=== PATIENT | female | born 1955 | race Caucasian/White ===

== ENCOUNTER 2024-01-17 11:11 | Outpatient (AMB) | payer MEDICARE, OTHER, SELFPAY ==
--- NOTE | 2024-01-17 11:18 | MHC.PC.OV ---
Vital Signs 01/17/24 11:26 Weight 181 lb 6 oz BP 112/76 Blood Pressure Location Lt brachial Position Sitting Respiration 14 Pulse 58 Pulse Source Pulse Oximeter Temp 98.1 F Temp Source Oral Pulse Oximetry (%) 95 Oxygen Delivery Method Room Air Intake Visit Reasons: est care Intake Note: New patient visit. Seeing Dr Matthew for bursitis Market Consultant Required: No Allergies No Known Allergies Allergy (Verified 01/17/24 11:20) Medication List - Last Reconciled 01/17/24 by Zonia Stokes MD atorvastatin 20 mg PO DAILY zrclkpgdwj-czomqjfsexuzi-jgmf 50-300-40 mg 1 - 2 caps PO Q4H Tobacco use date assessed: 01/17/24 Fall risk assessment: No Falls in past year Last assessed Fall Risk: 01/17/24 Dental Screening Dental Screen Date: 01/17/24 Did you have a dental visit in the last 12 months?: Yes Did you have a dental problem in the last 6 months where you did not have access to dental care?: No Was dental information given to patient?: Patient has dentist HPI HPI Comments History of Present Illness Details 68 year female with a past medical history of hyperlipidemia, migraine presenting to establish care Migraines-Takes fioricet as needed, sparingly Hyperlipidemia-On lipitor. tolerating without side effects. She wanted to lose weight with help of GLP. Ozempic was not covered. 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 1. Little interest or pleasure in doing things: not at all 2. Feeling down, depressed, or hopeless: not at all 3. Trouble falling or staying asleep, or sleeping too much: not at all 4. Feeling tired or having little energy: not at all 5. Poor appetite or overeating: not at all 6. Feeling bad about yourself - or that you are a failure or have let yourself or your family down: not at all 7. Trouble concentrating on things, such as reading the newspaper or watching television: not at all 8. Moving or speaking so slowly that other people could have noticed. Or the opposite - being so fidgety or restless that you have been moving around a lot more than usual: not at all 9. Thoughts that you would be better off or of hurting yourself in some way: not at all Total score: 0 Depression Screening Interpretation: Negative (neg) Depression Screening Done: Yes 11150 - PHQ-9 Billing: Yes Source: Developed by Drs. Ron Mark, Sarah West, Nicholas Collier and colleagues, with an educational ghislaine from [employer] Thrive Questionnaire Date Thrive assessed: 01/17/24 I am a: Patient What is your living situation today?: I have a steady place to live Within the past 12 months, did the food you bought not last and you didn't have the money to get more?: Never true Within the past 12 months, did you worry whether your food would run out before you got money to buy more?: Never true Do you have trouble paying for medicines?: No Do you have trouble getting transportation to medical appointments?: No Do you have trouble paying your heating and electricity bill?: No Do you have trouble taking care of your child, family member or friend?: No Do you have trouble with day-to-day activities such as bathing, preparing meals, shopping, managing finances, etc.?: No Are you currently unemployed and looking for a job?: No Are you interested in more education?: No Please select the resources that you would like help with: None Currently or been in a relationship where the following occur: no concerns reported THRIVE Score: 0 AUDIT C Alcohol Use Questionnaire (AUDIT-C) 1. How often do you have a drink containing alcohol?: 2-4 times a month 2. How many drinks containing alcohol do you have on a typical day when you are drinking?: 1 or 2 3. How often do you have six or more drinks on one occasion?: Never Total Score: 2 NADINE-7 AMB Questionnaire NADINE-7 Date NADINE - 7 assessed: 01/17/24 Feeling nervous, anxious, or on edge: 0 = Not at all Not being able to stop or control worryin = Not at all Worrying too much about different things: 0 = Not at all Trouble relaxin = Not at all Being so restless that it is hard to sit still: 0 = Not at all Becoming easily annoyed or irritable: 0 = Not at all Feeling afraid as if something awful might happen: 0 = Not at all Total NADINE-7 score (0-4 normal; 5-9 mild; 10-14 moderate; 15-21 severe): 0 Source: Developed by Drs. Ron Mark, Sarah West, Nicholas Collier and colleagues, with an educational ghislaine from [employer] NADINE-7 Assessment Billing NADINE-7 Assessment Tool: NADINE-7 Assessment 45573 Review of Systems Const Details: ROS CONSTITUTIONAL: Denies weight loss, fever and chills. HEENT: Denies changes in vision and hearing. RESPIRATORY: Denies SOB and cough. CV: Denies palpitations and CP GI: Denies abdominal pain, nausea, vomiting and diarrhea. : Denies dysuria and urinary frequency. MSK: Denies new myalgia and joint pain. SKIN: Denies rash and pruritus. NEUROLOGICAL: Denies headache PSYCHIATRIC: Denies recent changes in mood. Physical exam (Primary Care) Vital Signs: Last Vital Signs Temp 98.1 F 01/17/24 11:26 Pulse 58 01/17/24 11:26 Resp 14 01/17/24 11:26 BP 112/76 01/17/24 11:26 Pulse Ox 95 01/17/24 11:26 Oxygen Delivery Method Room Air 01/17/24 11:26 PHYSICAL EXAM: GENERAL: Alert and oriented x 3. NAD EYES: EOMI. Anicteric. HENT: Moist mucous membranes. No scleral icterus. No cervical lymphadenopathy. LUNGS: Clear to auscultation bilaterally. CARDIOVASCULAR: Regular rate and rhythm. No murmur. No JVD. ABDOMEN: Soft, non-tender +bs EXTREMITIES: No edema. Non-tender. SKIN: No rashes or lesions. Warm. NEUROLOGIC: No focal neurological deficits. CN II-XII grossly intact PSYCHIATRIC: Cooperative. Appropriate mood and affect Tobacco/Smoking Status: Tobacco use Status Tobacco use date assessed 01/17/24 01/17/24 12:03 Patient Tobacco Use Status Never used Tobacco 01/17/24 12:03 e-Cigarette/Vaping Use Never Used 01/17/24 11:24 PHQ-9: PHQ-9 Score PHQ-9: Total score 0 01/17/24 12:03 Depression Screening Interpretation: Negative (neg) Thrive Assessment: Date of Thrive Assessment Date Thrive assessed 01/17/24 01/17/24 12:03 Currently or been in a relationship where the following occur: no concerns reported Assessment and Plan Assessment & Plan (1) Hyperlipidemia: Comment: Check lipids next visit. Advised to stay on medications as no increase in exercise or dietary modifications. She exercises frequently at baseline Code(s): E78.5 - Hyperlipidemia, unspecified Qualifiers: Hyperlipidemia type: mixed hyperlipidemia Qualified Code(s): E78.2 - Mixed hyperlipidemia (2) Headache: Code(s): R51.9 - Headache, unspecified Qualifiers: Headache type: other headache syndrome Qualified Code(s): G44.89 - Other headache syndrome Plan: Takes prn otc medications for infrequent headache. If this does not relieve symptoms she uses fioricet as needed sparingly. Mounjaro ordered-discussed PA may be denied as non diabetic Medications: New hnjkxrxuxy-xuowgketgtcqr-yxed 50-300-40 mg 1 cap PO Q4H PRN 30 caps 0RF pain MDD 6 cap Mounjaro (tirzepatide) 5 mg (0.5 mL) subcut QWEEK 2 mL 3RF NS atorvastatin 20 mg PO DAILY 90 tabs 3RF 90 days Coding Level of Care Code Est Pt Level 4 (84528) Complex EM visit Add On G2211 Diagnoses Mixed hyperlipidemia E78.2 Hyperlipidemia type: mixed hyperlipidemia Other headache syndrome G44.89 Headache type: other headache syndrome Additional Codes NADINE-7 Assessment Billing - NADINE-7 Assessment Tool: NADINE-7 Assessment 00840 ([id number]) Time Spent (min) 35
[2024-01-17 11:26] VITALS: BP 112/76; PULSE 58; RESP 14; TEMP 36.7; O2SAT 95
== END 2024-01-17 12:02 | disposition home or self-care (01) ==
PROVIDERS: PCP Internal Medicine; Visit Provider Internal Medicine
DX: E78.2 Mixed hyperlipidemia (principal); G44.89 Other headache syndrome
CPT/HCPCS: 99214; G2211

== ENCOUNTER 2024-07-01 08:27 | Outpatient (AMB) | payer MEDICARE, OTHER, SELFPAY ==
--- NOTE | 2024-07-01 08:29 | A.OFFPC_ITS ---
Vital Signs 07/01/24 08:34 Height 5 ft 4 in Weight 189 lb BMI 32.4 BP 104/68 Blood Pressure Location Rt brachial Position Sitting Pulse 63 Pulse Source Pulse Oximeter Pulse Oximetry (%) 95 Oxygen Delivery Method Room Air Intake Visit Reasons: cpe Intake Note: Physical. Left leg pain. Started in December. Went to Dr Matthew and he said it was bursitis. Has tried physical therapy. Allergies No Known Allergies Allergy (Verified 07/01/24 08:32) Tobacco use date assessed: 01/17/24 Dental Screening Dental Screen Date: 01/17/24 HPI HPI Comments History of Present Illness Details 69 year female with a past medical histo ry of hyperlipidemia, migraine presenting for follow up Migraines-Takes fioricet as needed, sparingly Hyperlipidemia-On lipitor 20mg daily. tolerating without side effects. She wanted to lose weight with help of GLP. Ozempic was not covered. Having persistent left hip pain. Had bruising/rash no trauma. Saw Dr Matthew had xray offered injection, declined. Left low back pain. Radiating pain wrapping around lateral upper thigh into quadricep/knee. Feels heavy/weak. 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 NAD EYES: EOMI. Anicteric. HENT: Moist mucous membranes. No scleral icterus. No cervical lymphadenopathy. LUNGS: Clear to auscultation bilaterally. CARDIOVASCULAR: Regular rate and rhythm. No murmur. No JVD. ABDOMEN: Soft, non-tender +bs EXTREMITIES: No edema. Non-tender. SKIN: No rashes or lesions. Warm. NEUROLOGIC: No focal neurological deficits. CN II-XII grossly intact PSYCHIATRIC: Cooperative. Appropriate mood and affect [facility] Family History Mother Lung cancer Maternal Grandmother Pancreatic cancer Social History Housing: House Patient Tobacco Use Status: Never used Tobacco e-Cigarette/Vaping Use: Never Used Second Hand Smoke Exposure: No service: No Current occupational status: retired Cognitive needs: No Hearing needs: No Vision needs: Yes (glasses to read) Questionnaire PHQ-9 Over the last 2 weeks, how often have you been bothered by any of the following problems? 1. Little interest or pleasure in doing things: not at all 2. Feeling down, depressed, or hopeless: not at all 3. Trouble falling or staying asleep, or sleeping too much: more than half the days 4. Feeling tired or having little energy: more than half the days 5. Poor appetite or overeating: not at all 6. Feeling bad about yourself - or that you are a failure or have let yourself or your family down: not at all 7. Trouble concentrating on things, such as reading the newspaper or watching television: not at all 8. Moving or speaking so slowly that other people could have noticed. Or the opposite - being so fidgety or restless that you have been moving around a lot more than usual: not at all 9. Thoughts that you would be better off or of hurting yourself in some way: not at all Total score: 4 Depression Screening Interpretation: Positive Depression Screening Follow-up: Existing condition Depression Screening Done: Yes 89879 - PHQ-9 Billing: Yes Source: Developed by Drs. Ron Mark, Sarah West, Nicholas Collier and colleagues, with an educational ghislaine from [employer]. Thrive Questionnaire Date Thrive assessed: 01/17/24 I am a: Patient What is your living situation today?: I have a steady place to live Within the past 12 months, did the food you bought not last and you didn't have the money to get more?: Never true Within the past 12 months, did you worry whether your food would run out before you got money to buy more?: Never true Do you have trouble paying for medicines?: No Do you have trouble getting transportation to medical appointments?: No Do you have trouble paying your heating and electricity bill?: No Do you have trouble taking care of your child, family member or friend?: No Do you have trouble with day-to-day activities such as bathing, preparing meals, shopping, managing finances, etc.?: No Are you currently unemployed and looking for a job?: No Are you interested in more education?: No Please select the resources that you would like help with: None Currently or been in a relationship where the following occur: No concerns reported THRIVE Score: 0 AUDIT C Alcohol Use Questionnaire (AUDIT-C) 1. How often do you have a drink containing alcohol?: 2-4 times a month 2. How many drinks containing alcohol do you have on a typical day when you are drinking?: 1 or 2 3. How often do you have six or more drinks on one occasion?: Never Total Score: 2 NADINE-7 AMB Questionnaire NADINE-7 Date NADINE - 7 assessed: 01/17/24 Feeling nervous, anxious, or on edge: 0 = Not at all Not being able to stop or control worryin = Several days Worrying too much about different things: 1 = Several days Trouble relaxin = Several days Being so restless that it is hard to sit still: 0 = Not at all Becoming easily annoyed or irritable: 1 = Several days Feeling afraid as if something awful might happen: 0 = Not at all Total NADINE-7 score (0-4 normal; 5-9 mild; 10-14 moderate; 15-21 severe): 4 Source: Developed by Drs. Ron Mark, Sarah West, Nicholas Collier and colleagues, with an educational ghislaine from [employer]. NADINE-7 Assessment Billing NADINE-7 Assessment Tool: NADINE-7 Assessment 60479 Physical exam (Primary Care) Vital Signs: Last Vital Signs Pulse 63 07/01/24 08:34 BP 104/68 07/01/24 08:34 Pulse Ox 95 07/01/24 08:34 Oxygen Delivery Method Room Air 07/01/24 08:34 BMI result Body Mass Index 32.4 Tobacco/Smoking Status: Tobacco use Status Tobacco use date assessed 01/17/24 07/01/24 08:30 Patient Tobacco Use Status Never used Tobacco 07/01/24 08:30 e-Cigarette/Vaping Use Never Used 07/01/24 08:30 Depression Screening Interpretation: Positive Depression Screening Follow-up: Existing condition Thrive Assessment: Date of Thrive Assessment Date Thrive assessed 01/17/24 07/01/24 08:30 Currently or been in a relationship where the following occur: No concerns reported Coding Level of Care Code Est Pt Prev Care >65y(81581) Diagnoses Physical exam Z00.00 Mixed hyperlipidemia E78.2 Hyperlipidemia type: mixed hyperlipidemia Left hip pain M25.552 Additional Codes NADINE-7 Assessment Billing - NADINE-7 Assessment Tool: NADINE-7 Assessment 76283 ([id number]) Assessment & Plan Assessment & Plan (1) Physical exam: Code(s): Z00.00 - Encounter for general adult medical examination without abnormal findings Category: Medical (2) Hyperlipidemia: Code(s): E78.5 - Hyperlipidemia, unspecified Category: Medical Qualifiers: Hyperlipidemia type: mixed hyperlipidemia Qualified Code(s): E78.2 - Mixed hyperlipidemia Plan: continue statin. check lipids today (3) Left hip pain: Code(s): M25.552 - Pain in left hip Category: Medical Plan: low back xray ordered. Prednisone x 5 days. Obtain xray results Plan see above Orders: Orders Complete Blood Count Auto Diff Today R53.83 - Other fatigue Hemoglobin A1c Today R53.83 - Other fatigue Vitamin B12 and Folate Today R53.83 - Other fatigue Lyme IgG/IgM w/reflex to WB Today M70.70 - Other bursitis of hip, unspecified hip, R53.83 - Other fatigue XR lumbar spine 2-3V Today M54.16 - Radiculopathy, lumbar region, M54.50 - Low back pain, unspecified Comprehensive Met. Panel Today R53.83 - Other fatigue Lipid Panel Today R53.83 - Other fatigue Medications: New trazodone 50 mg PO BEDTIME PRN 90 tabs 0RF sleep Refilled kunqvlndyh-ylyqemdjfwxqk-iotb 50-300-40 mg 1 cap PO Q4H PRN 30 caps 0RF pain MDD 6 cap
[2024-07-01 08:34] VITALS: BP 104/68; PULSE 63; O2SAT 95; BMI 32.4
== END 2024-07-01 09:12 | disposition home or self-care (01) ==
PROVIDERS: PCP Internal Medicine; Visit Provider Internal Medicine
DX: Z00.00 Encounter for general adult medical examination without abnormal findings (principal); E78.2 Mixed hyperlipidemia; M25.552 Pain in left hip

== ENCOUNTER → 2024-07-01 08:27 | Outpatient (BNVA) | payer MEDICARE, OTHER, SELFPAY | PROVIDERS: PCP Internal Medicine; Visit Provider Internal Medicine | DX: Z00.00 Encounter for general adult medical examination without abnormal findings (principal); E78.2 Mixed hyperlipidemia; M25.552 Pain in left hip; Z79.899 Other long term (current) drug therapy | CPT/HCPCS: 96127; 99397 ==

== ENCOUNTER 2024-07-01 09:17 | Outpatient (REF) | payer MEDICARE, OTHER, SELFPAY ==
[2024-07-01 10:47] LABS: MANUAL DIFF FLAG NO
[2024-07-01 10:59] LABS: Basophils Percent Auto 0.9 % (0-2); Eosinophils Absolute Auto 0.1 X10*3/uL (0.0-0.4); Hemoglobin 13.7 g/dl (12.0-16.0); Imm Gran Abs Auto 0.01 X10*3/uL (0.00-0.03); Imm Gran Pct Auto 0.2 % (0.0-0.4); Lymphocytes Absolute Auto 1.5 X10*3/uL (1.2-4.9); Lymphocytes Percent Auto 33.9 % (20-40); Mean Corpuscular HGB Conc 35.1 g/dl (31.0-35.0); Mean Corpuscular Hemoglobin 34.4 pg (27.0-33.0); Mean Platelet Volume 10.3 fL (9.4-12.3); Monocytes Absolute Auto 0.4 X10*3/uL (0.1-1.2); Monocytes Percent Auto 9.1 % (2-11); Neutrophils Absolute Auto 2.4 x10*3/uL (2.0-8.3); Neutrophils Percent Auto 53.9 % (45-73); Platelet Count 237 X10*3/uL (160-400); Red Blood Count 3.98 X10*6/uL (4.20-5.50); White Blood Count 4.5 X10*3/uL (4.8-10.8)
[2024-07-01 11:23] LABS: Estimated Average Glucose 108 mg/dL; Hemoglobin A1C 128.1786 umol/L; Hemoglobin A1c % 5.4 % (<6.0); Total Hemoglobin (HGBA1C) 3609.9373 umol/L
[2024-07-01 11:35] LABS: Alanine Aminotransferase 13 U/L (0-31); Albumin Level 4.4 g/dL (3.5-5.0); Alkaline Phosphatase 61 U/L (39-117); Anion Gap 12 (12-20); Aspartate Amino Transferase 22 U/L (5-31); Bilirubin Total 1.1 mg/dL (0.0-1.0); Blood Urea Nitrogen 16 mg/dL (9-16); Calcium 8.8 mg/dL (8.4-10.2); Carbon Dioxide 25 mmol/L (22-29); Chloride 108 mmol/L (96-108); Cholesterol 201 mg/dL (<200); Estimated Glomerular Filt Rate > 60; Glucose Random 100 mg/dL (60-115); HDL Cholesterol 70 mg/dL (>40); LDL Cholesterol Calculated 106 mg/dL (<100); Potassium 4.1 mmol/L (3.3-5.1); Sodium 141 mmol/L (135-145); Total Protein 7.4 g/dL (6.5-8.0); Triglycerides 128 mg/dL (<150)
[2024-07-01 11:55] LABS: Folate 8.8 ng/mL (> or = 4.0); Vitamin B12 393 pg/mL (200-900)
[2024-07-02 11:59] LABS: Lyme Abs Screen <0.90 index
== END 2024-07-01 09:18 | disposition home or self-care (01) ==
LOC: HO.WFDLDS 09:17
PROVIDERS: Visit Provider Internal Medicine
DX: Z00.00 Encounter for general adult medical examination without abnormal findings (principal); E78.2 Mixed hyperlipidemia; M25.552 Pain in left hip; R53.83 Other fatigue; M70.70 Other bursitis of hip, unspecified hip; Z79.899 Other long term (current) drug therapy
CPT/HCPCS: 36415; 80053; 80061; 82607; 82746; 83036; 85025; 86617; 86618; 96127; 99397

== ENCOUNTER 2024-09-03 18:44 | Outpatient (REF) | payer MEDICARE, OTHER, SELFPAY ==
[2024-09-03] MEDS: gadobutroL 10 ML VIAL IVPUSH (19:41)
== END 2024-09-03 18:45 | disposition home or self-care (01) ==
LOC: HO.MRI 18:44
PROVIDERS: PCP Internal Medicine; Visit Provider Internal Medicine
DX: M51.379 Other intervertebral disc degeneration, lumbosacral region without mention of lumbar back pain or lower extremity pain (principal); M25.552 Pain in left hip; M54.16 Radiculopathy, lumbar region; Z98.890 Other specified postprocedural states
CPT/HCPCS: 72158; 73721; A9585

== ENCOUNTER 2024-12-22 13:27 | Outpatient (AMB) | payer MEDICARE, OTHER, SELFPAY ==
--- NOTE | 2024-12-22 14:13 | A.SPINEOV_ITS ---
Vital Signs 12/22/24 14:19 Height 5 ft 4 in Weight 165 lb BMI 28.3 Intake Visit Reasons: LBP Intake Note: Ms. Jefferson is here today c/o Low back pain. 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 She is a very nice 69-year-old female with a history of 2 previous right L4-[address] Galindo in 2004 and 2019, presents with one year of back pain and left leg pain radiating into her left hip/buttock posterior lateral thigh, knee, and anterior tibial region. She has been dealing with the sxs as best she can using activity modifications at the gym, tylenol/motrin etc as well as more recently two separate courses of PT. The therapists werent helping much and decided they could not offer her any more resolution of sxs. She is very frustrated with her quality of life at this point, because she has very limited. She has pain with doing various household activities and especially any bending movements cause her to feel like her back is weak and painful. The leg pain is aggravated with standing and walking and gets better when she sits down. She had an MRI done here at [facility] showing severe stenosis at L4-5 with spondylolisthesis. PMH: She is really very healthy for a woman of her age, history of high cholesterol, she is on atorvastatin, previous back surgery as outlined above but denies any cardiac, pulmonary, renal, liver, GI, cancer, blood clots, bleeding disorders. Social hx: She does not smoke, she drinks occasionally, no marijuana Medications: Tylenol, ibuprofen, atorvastatin Allergies: None Physical exam: She walks with an antalgic gait, very difficult keeping up any normal pace because she starts to limp. There is no focal weakness in her lower extremities, reflexes diminished at the patella bilaterally. She has a well healed scar in her back. Imaging review: Lumbar MRI as well as standing flexion-extension x-rays done here at [facility] show grade 1 spondylolisthesis in the supine position which worsens with standing. She has postsurgical changes on the right at L4-5 with almost complete removal of 2/3 of the facet joint on that side. She has severe central canal stenosis at this level. Impression: 69-year-old female with 2 previous right L4-5 microdiskectomies done by , the last was in 2019, now presents with worsening back pain and left leg pain going down her leg in both the L4 in the L5 distributions. Based on the imaging done and the spondylolisthesis at L4-5 which looks like it gets worse in the standing position, and the severe central canal stenosis, I think this would explain her symptoms very nicely. I do not think a simple decompression would be enough because she has already had 2 previous surgeries on the right side and most of the facet joint on that side is gone. Likely we would just destabilize her more. I am going to review her case with Dr. Bhakta, but I think he would be willing to offer her lumbar fusion. I will discuss with him which approach he might think is best. The iliac artery runs right near the psoas muscle on the left, which may preclude him doing an oblique lumbar interbody fusion. Once I have a chance to review everything with him I will get back to the patient with his final opinion. Thank you for allowing us to care for your patient. The total time spent with this visit with this patient was 65 minutes reviewing history, physical exam, lumbar imaging review, and implementation of treatment plan or further diagnostic testing Gerry Bhakta MD,PhD [facility] Orders: Orders XR lumbar spine 4V min Today M54.16 - Radiculopathy, lumbar region Coding Level of Care Code New Pt Level 5 (85877) Diagnoses Lumbar radiculopathy M54.16
[2024-12-22 14:19] VITALS: BMI 28.3
--- OUTSIDE RECORDS SUMMARY | 2024-12-22 15:10 | XMS_ITS | Encounter Summary ---
Author Organization [facility] Address [address] [place] [address] Care Team Providers Care Precast Molder Name Role Phone Lanette Ramirez MD Primary Care Provider Agus Faria, Pcp Primary Care Provider Travis e Encounter Details Date Type Department Care Team Description 03/16/2020 Orders Only Physiatry - [facility] [address] [place] [address] Hermes Jaramillo PA-C Social History Tobacco Use Types Packs/Day Years Used Date Smoking Tobacco: Former Cigarettes 1 20 Q uit: 09/24/1992 Smokeless Tobacco: Former Alcohol Use Standard Drinks/Week Comments Yes 2.5 (1 standard drink = 0.6 oz p ure alcohol) Alcohol Habits Answer Date Recorded How often do you have a drink containing alcohol ? 2-3 times a week 09/08/2021 How many drinks containing a lcohol do you have on a typical day when you are drinking? 1 or 2 09/08/2021 How often do you have six or more drinks on one occasion? Never 09/08/2021 Social Isolation Answer Date Recorded In a typical week, how many times do you talk on the phone with family, friends, or neighbors? More than three times a week 09/08/2021 How often do you get togethe r with friends or relatives? More than three times a week 09/08/2021 How often do you attend chur ch or baptism services? Never 09/08/2021 Do you belong to any clubs o r organizations such as alevism groups, unions, fraternal or athletic groups, or school groups? No 09/08/2021 How often do you attend meet ings of the clubs or organizations you belong to? Never 09/08/2021 Are you now , , , , never or living with a partner? 09/08/2021 Physical Activity Answer Date Recorded On average, how many days pe r week do you engage in moderate to strenuous exercise (like walking fast, running, jogging, dancing, swimming, biking, or other activities that cause a light or heavy sweat)? 3 days 09/08/2021 On average, how many minutes do you engage in exercise at this level? 60 min 09/08/2021 Stress Answer Date Recorded Do you feel stress - tense, restless, nervous, or anxious, or unable to sleep at night because your mind is troubled all the time - these days? Only a little 09/08/2021 Financial Resource Strain Answer Date R ecorded How hard is it for you to pa y for the very basics like food, housing, medical care, and heating? Not hard at all 09/08/2021 Intimate Partner Violence Answer Date R ecorded Within the last year, have y ou been afraid of your partner or ex-partner? No 09/08/2021 Within the last year, have y ou been humiliated or emotionally abused in other ways by your partner or ex-partner? No Within the last year, have y ou been kicked, hit, slapped, or otherwise physically hurt by your partner or ex-partner? Not asked Within the last year, have y ou been raped or forced to have any kind of sexual activity by your partner or ex-partner? No 09/08/2021 Food Insecurity Answer Date Recorded Within the past 12 months, y ou worried that your food would run out before you got money to buy more. Never true 09/08/2021 Within the past 12 months, t he food you bought just didn't last and you didn't have money to get more. Never true 09/08/2021 Transportation Needs Answer Date Record ed In the past 12 months, has l ack of transportation kept you from medical appointments or from getting medications? No 08/24 In the past 12 months, has l ack of transportation kept you from meetings, work, or getting things needed for daily living? No 09/08/2021 Housing Stability Answer Date Recorded In the last 12 months, was t here a time when you were not able to pay the mortgage or rent on time? No 09/08/2021 In the last 12 months, how many places have you lived? 1 09/08/2021 In the last 12 months, was t here a time when you did not have a steady place to sleep or slept in a snf (including now)? No 09/08/2021 Sex Assigned at Date Recorded Not on file Job Start Date Occupation Industry Not on file Not on file Not on file documented as of this encounter Plan of Treatment Not on file documented as of this encounter Visit Diagnoses Not on filedocumented in this encounter Care Teams Precast Molder Relationship Specialty Start Date End Date Lanette Ramirez MD PCP - General Internal Medicine 10/04/12 05/06/23 Brien Faria PCP - General Internal Medicine 05/07/23 documented as of this encounter
--- OUTSIDE RECORDS SUMMARY | 2024-12-22 15:10 | XMS_ITS | Encounter Summary ---
Author Organization [facility] Address [address] [place] [address] Care Team Providers Care Insurance Agent Name Role Phone Lanette Ramirez MD Primary Care Provider Agus Faria Pcp Primary Care Provider Travis e Encounter Details Date Type Department Care Team Description 06/16/2018 Pt. Non Urgent Medic al Question Medicine/Pediatrics - [place] [address] [place] [address] Lanette Ramirez MD Social History Tobacco Use Types Packs/Day Years [...] often do you attend chur ch or restorationism services? Never 09/08/2021 Do you belong to any clubs o r organizations such as latter-day groups, unions, fraternal or athletic groups, or [...] place to sleep or slept in a long term (including now)? No 09/08/2021 Sex Assigned at Date Recorded Not on file Job Start Date Occupation Industry Not on file Not on file Not on file documented as of this encounter Progress Notes * Vannesa Hawkins L.P.N. - 06/17/2018 8:55 AM EDTFrom: Nancy Lindsay To: Lanette Ramirez MD Sent: 06/16/2018 3:33 PM EDT Subject: check up ??? Same question I sent regarding my Jose, could you let us know when its time for our physicals??? We have never been notified . documented in this encounter Plan of Treatment Not on file documented as of this encounter Visit Diagnoses Not on filedocumented in this encounter Care Teams Insurance Agent Relationship Specialty Start Date End Date Lanette Ramirez MD PCP - General Internal Medicine 10/04/12 05/06/23 [facility], Pcp PCP - General Internal Medicine 05/07/23 documented as of this encounter
--- OUTSIDE RECORDS SUMMARY | 2024-12-22 15:10 | XMS_ITS | Encounter Summary ---
Author Organization [facility] Address [address] [place] [address] Care Team Providers Care Supervisor Fiberglass Boat Assembly Name Role Phone Lanette Ramirez MD Primary Care Provider Agus Faria, Pcp Primary Care Provider Unavailabl e Reason for Visit * Reason Onset Date Comments Provider Call Back 03/15/2020 Encounter Details Date Type Department Care Team Description 03/15/2020 [facility] [place] [address] [place] [address] Hermes Jaramillo PA-C Provider Call Back Social History Tobacco Use Types Packs/Day Years [...] week 09/08/2021 How often do you attend [facility] or oriental orthodox services? Never 09/08/2021 Do you belong to any clubs o r organizations such as bahai groups, unions, fraternal or athletic groups, or [...] place to sleep or slept in a assisted (including now)? No 09/08/2021 Sex Assigned at Date Recorded Not on file Job Start Date Occupation Industry Not on file Not on file Not on file documented as of this encounter Miscellaneous Notes * Telephone Encounter - Daniela Ayala M.A. - 03/16/2020 9:17 AM EDT Patient informed of RX * Telephone Encounter - Hermes Jaramillo PA-C - 03/16/2020 9:00 AM EDT I sent a prescription for Flexeril to her pharmacy. We will see what her MRI shows. * Telephone Encounter - Maris Stewart L.P.N. 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 Called pt back she wanted Mr Jaramillo to know that her MRI is scheduled for tonight She also wanted him to know that she called to schedule An appt with Dr Galindo because she knows that she will need surgery ,her appt is scheduled for 04/09/20 she is hoping to get in sooner She also wanted Mr Jaramillo to know that she is now having Numbness right leg From knee down She is on day 4 of the steroids and says that they are not doing much for her ,explained That it can take up to the whole script to see if she will get any relief She says that Evette Pina had prescribed her cyclobenzaprine for her muscle spasms she would like to know if Mr Jaramillo could send Another script to the pharmacy for her as she will run out before her appt with Dr Galindo Explained that Mr Jaramillo is Not in the office until tomorrow am but I will forward the message to him * Telephone Encounter - Lisa Reed - 03/15/2020 12:46 PM EDT Patient is calling to inform provider that she is having numbness on the right leg and muscle spasms. She would like a provider call back to discuss the pain and symptoms. She states pain is worse. documented in this encounter Plan of Treatment Not on file documented as of this encounter Visit Diagnoses Not on filedocumented in this encounter Care Teams Supervisor Fiberglass Boat Assembly Relationship Specialty Start Date End Date Lanette Ramirez MD PCP - General Internal Medicine 10/04[facility]12 [facility] documented as of this encounter
--- OUTSIDE RECORDS SUMMARY | 2024-12-22 15:10 | XMS_ITS | Encounter Summary ---
Author Organization [facility] Address [address] [place] [address] Care Team Providers Care Sap Hana Architect Name Role Phone Lanette Ramirez MD Primary Care Provider Agus Faria Pcp Primary Care Provider Travis e Encounter Details Date Type Department Care Team Description 10/06/2013 Pt. Non Urgent Medic al Question Medicine/Pediatrics - [place] [address] [place] [address] Lanette Ramirez MD Social History Tobacco Use Types Packs/Day Years Used Date Smoking Tobacco: Former Cigarettes 1 20 Q uit: 09/24/1992 Alcohol Use Standard Drinks/Week Comments Yes 2.5 [...] often do you attend chur ch or episcopalian services? Never 09/08/2021 Do you belong to any clubs o r organizations such as scientology groups, unions, fraternal or athletic groups, or [...] place to sleep or slept in a usp (including now)? No 09/08/2021 Sex Assigned at Date Recorded Not on file Job Start Date Occupation Industry Not on file Not on file Not on file documented as of this encounter Progress Notes * Vannesa Hawkins L.P.N. - 10/06/2013 2:23 PM ESTFrom: NANCY LINDSAY To: Lanette Ramirez MD Sent: SunOct 06, 2013 1:49 PM Subject: medication I was seen at the office by Joelle on Sunday. Sinus infection, received z pack. am on my 4th day, things clearing up, but am still having the awful headaches. I have tried furiset (sp), does not seem shraddha helping, my daughter in law gave me a zomeg (sp) , I took half of it and it has eased the headache. Do you think the Dr can write me a script for the zomeg? documented in this encounter Plan of Treatment Not on file documented as of this encounter Visit Diagnoses Not on filedocumented in this encounter Care Teams Sap Hana Architect Relationship Specialty Start Date End Date Lanette Ramirez MD PCP - General Internal Medicine 10/04/12 05/06/23 [facility], Pcp PCP - General Internal Medicine 05/07/23 documented as of this encounter
--- OUTSIDE RECORDS SUMMARY | 2024-12-22 15:10 | XMS_ITS | Encounter Summary ---
Author Organization [facility] Address [address] [place] [address] Care Team Providers Care Campus Safety Officer Name Role Phone Lanette Ramirez MD Primary Care Provider Agus Faria Pcp Primary Care Provider Travis e Encounter Details Date Type Department Care Team Description 08/31/2015 Pt. Non Urgent Medic al Question Medicine/Pediatrics - [place] [address] [place] [address] Lanette Ramirez MD Social History Tobacco Use [...] often do you attend chur ch or mandaeism services? Never 09/08/2021 Do you belong to any clubs o r organizations such as anglican groups, unions, fraternal or athletic groups, or [...] place to sleep or slept in a jail (including now)? No 09/08/2021 Sex Assigned at Date Recorded Not on file Job Start Date Occupation Industry Not on file Not on file Not on file documented as of this encounter Progress Notes * Vannesa HullP.N. - 08/31/2015 2:33 PM ESTFrom: Nancy Lindsay To: Lanette Ramirez MD Sent: 08/31/2015 2:18 PM EST Subject: Cortisone shots Does joseph give cortisone shots for rotor cuff? documented in this encounter Plan of Treatment Not on file documented as of this encounter Visit Diagnoses Not on filedocumented in this encounter Care Teams Campus Safety Officer Relationship Specialty Start Date End Date Lanette Ramirez MD PCP - General Internal Medicine 10/04/12 05/06/23 [facility] PCP - General Internal Medicine 05/07/23 documented as of this encounter
--- OUTSIDE RECORDS SUMMARY | 2024-12-22 15:10 | XMS_ITS | Encounter Summary ---
Author Organization [facility] Address [address] [place] [address] Care Team Providers Care Logistics Supply Officer Name Role Phone Lanette Ramirez MD Primary Care Provider Agus Faria Pcp Primary Care Provider Travis e Encounter Details Date Type Department Care Team Description 2018 Pt. Non Urgent Medic al Question Medicine/Pediatrics - [place] [address] [place] [address] Lanette Ramirez MD Social History Tobacco Use [...] often do you attend chur ch or temple services? Never 09/08/2021 Do you belong to any clubs o r organizations such as anabaptist groups, unions, fraternal or athletic groups, or [...] place to sleep or slept in a longterm (including now)? No 09/08/2021 Sex Assigned at Date Recorded Not on file Job Start Date Occupation Industry Not on file Not on file Not on file documented as of this encounter Progress Notes * Vannesa Hawkins L.P.N. - 2018 1:53 PM EDTFrom: Nancy Lindsay To: Lanette Ramirez MD Sent: 2018 1:46 PM EDT Subject: internal referral I contacted the office last Sunday03/08/18 requesting an internal referral be made to Naye ruiz, for Lamar Bolaños. I would like to set up an appt. to have my feet checked out, I have just about constant pain in both feet. I was told a Dr had to sign off on this request and I would benotified from the [place] [facility], It hasn't happened yet. documented in this encounter Plan of Treatment Not on file documented as of this encounter Visit Diagnoses Not on filedocumented in this encounter Care Teams Logistics Supply Officer Relationship Specialty Start Date End Date Lanette Ramirez MD PCP - General Internal Medicine 10/04/12 05/06/23 [facility], Pcp PCP - General Internal Medicine 05/07/23 documented as of this encounter
--- OUTSIDE RECORDS SUMMARY | 2024-12-22 15:10 | XMS_ITS | Encounter Summary ---
Author Organization [facility] Address [address] [place] [address] Care Team Providers Care Local Area Network Systems Adminstrator Name Role Phone Lanette Ramirez MD Primary Care Provider Agus Faria, Pcp Primary Care Provider Travis e Encounter Details Date Type Department Care Team Description 04/27/2020 Pt. Non Urgent Medic al Question Medicine/Pediatrics - [place] [address] [place] [phone] Lanette Ramirez MD Social History Tobacco Use [...] often do you attend chur ch or taoism services? Never 09/08/2021 Do you belong to any clubs o r organizations such as protestant groups, unions, fraternal or athletic groups, or [...] place to sleep or slept in a mcc (including now)? No 09/08/2021 Sex Assigned at Date Recorded Not on file Job Start Date Occupation Industry Not on file Not on file Not on file documented as of this encounter Progress Notes * Holly Gallagher R.N. - 04/27/2020 10:44 AM EDTFrom: Nancy Lindsay To: Lanette Ramirez MD Sent: 04/27/2020 9:51 AM EDT Subject: Ulta sound of abdomen ? I have recently received a message on My Chart, evidentially Kasey Pnia from the [place] office set up an ultrasound appt for me for my abdomen. I received notification that this is now expiring. I had no idea that an ultrasound was approved for me. I have had an MRI for my backand had surge ry on April [address] Galindo., I have had an colonoscope on March [address] Yepez. Is therea reason why I would need an ultrasound? I tried to reply to Chas, but she is not on the list to receive a message from me. documented in this encounter Plan of Treatment Not on file documented as of this encounter Visit Diagnoses Not on filedocumented in this encounter Care Teams Local Area Network Systems Adminstrator Relationship Specialty Start Date End Date Lanette Ramirez MD PCP - General Internal Medicine 10/04/12 05/06/23 [facility], Pcp PCP - General Internal Medicine 05/07/23 documented as of this encounter
--- OUTSIDE RECORDS SUMMARY | 2024-12-22 15:10 | XMS_ITS | Encounter Summary ---
Author Organization [facility] Address [address] [place] [address] Care Team Providers Care Residential Collections Name Role Phone Lanette Ramirez MD Primary Care Provider Agus Faria, Pcp Primary Care Provider Unavailabl e Reason for Visit * Reason Onset Date Comments Hip Pain 03/05/2020 Back Pain 03/05/2020 Encounter Details Date Type Department Care Team Description 03/05/2020 Telephone Adult Medicine [address] [address] Lanette Ramirez MD Hip Pain; Back Pain Social History Tobacco Use Types Packs/Day Years [...] 09/08/2021 How often do you attend chur or moravian services? Never 09/08/2021 Do you belong to any clubs o r organizations such as sabianist groups, unions, fraternal or athletic groups, or [...] place to sleep or slept in a fpc (including now)? No 09/08/2021 Sex Assigned at Date Recorded Not on file Job Start Date Occupation Industry Not on file Not on file Not on file documented as of this encounter Miscellaneous Notes * Telephone Encounter - Layla Burch M.A. - 03/05/2020 3:19 PM EDT Pt advised, xrays ordered. * Telephone Encounter - MALICK Peter - 03/05/2020 3:05 PM EDT X-ray of low back and hip is ordered. * Telephone Encounter - Leanna HullPLetyNLety - 03/05/2020 1:50 PM EDT Spoke with Pt :She would really like some kind of imaging before anyone starts manipulating her Stated she's in a lot pain especially with any weight bearing or movement on right Side hip area Please review request for xray * Telephone Encounter - Nova Monreal - 03/05/2020 1:44 PM EDT Patient is calling states that she would like to speak to MALICK Peter * Telephone Encounter - MALICK Peter - 03/05/2020 12:24 PM EDT Would she be interested in seeing physical therapy, chiropractor or physiatry? * Telephone Encounter - Yesy Petersen L.P.N. - 03/05/2020 9:02 AM EDT Spoke with patient, States she is worse with pain in her right side hip area radiating down leg into calf She is taking Robaxin without relief, she started taking Ibuprofen 600 mg every 3 hours per triage from 03/03/20 with out any relief, she is using ice packs to her back with no help either Suggest to try moist heat if the ice packs are not helping, try Tylenol as directed, pt has colonoscopy 03/25/20 for stomach issue, diarrhea She is laying on the floor with legs elevated Message to Kasey Pina for advice, question referral, xray * Telephone Encounter - Asha Nix - 03/05/2020 8:37 AM EDT Please see TE from 03/03/20. Pt states that her hip and back pain is getting worse. Please advise. documented in this encounter Plan of Treatment Not on file documented as of this encounter Results * X-RAY EXAM OF LOWER SPINE WITH OBLIQUES (03/08/2020 9:56 AM EDT) 03/08/2020 10:0 0 AM EDT Impressions SERGIO CALVO OTHER EXTERNAL - 03/08/2020 10:01 AM EDT IMPRESSION: Degenerative changes most advanced in the inferior facets. ??Grade 1 anterolisthesis of L4 on 5. Narrative SERGIO CALVO OTHER EXTERNAL - 03/08/2020 10:01 AM EDT History: Back pain. Lumbosacral spine, 4 views: There is mild diffuse disc degeneration. ??There is facet degeneration most advanced inferiorly. ??There is about 6 mm of anterolisthesis of L4 on 5 which appears to be due to facet degeneration. ??Alignment is normal. ??There is slight wedging of the T12 vertebral body, likely developmental. Procedure Note Larry Araujo MD - 03/08/2020 History: Back pain. Lumbosacral spine, 4 views: There is mild diffuse disc degeneration.There is facet degeneration most advanced inferiorly. There is about 6 mm ofanterolisthesis of L4 on 5 which appears to be due to facet degeneration. Alignment is normal. There isslight wedging of the T12 vertebral body, likely developmental. IMPRESSION IMPRESSION: Degenerative changes most advanced in the inferior facets.Grade 1 anterolisthesis of L4 on 5. Kasey [facility] Performing Organization Address [facility] Co de Phone Number SERGIO CALVO OTHER EXTERNAL * RADEX HIP UNILATERAL WITH PELVIS 2-3 VIEWS (03/08/2020 9:56 AM EDT) 03/08/2020 9:59 AM EDT Impressions WHITE LESTERD OTHER EXTERNAL - 03/08/2020 10:00 AM EDT IMPRESSION: Mild degenerative changes. Narrative SERGIO BATISTAD OTHER EXTERNAL - 03/08/2020 10:00 AM EDT History: Right hip pain. AP pelvis and 2 additional views of the right hip: There are very mild degenerative changes in the right hip with inferomedial joint space narrowing and a miniscule spur at the inferior margin of the articular surface of the femoral head. ??There is some mild trochanteric spurring. ??There are moderate degenerative changes in the SI joints. Procedure Note Larry Araujo MD - 03/08/2020 History: Right hip pain. AP pelvis and 2 additional views of the right hip: There are very milddegenerative changes in the right hip with inferomedial joint space narrowing and a miniscule spurat the inferior margin of the articular surface of the femoral head. There is some mildtrochanteric spurring. There are moderate degenerative changes in the SI joints. IMPRESSION IMPRESSION: Mild degenerative changes. Kasey TERESA RADIOLOGY Performing Organization Address [facility] Co de Phone Number SERGIO CALVO OTHER EXTERNAL documented in this encounter Visit Diagnoses Diagnosis Acute right-sided low back pain without sciatica- Primary Right hip pain Pain in joint, pelvic region and thigh Acute right-sided low back pain without sciatica Right hip pain Pain in joint, pelvic region and thigh Acute right-sided low back pain without sciatica documented in this encounter Care Teams Residential Collections Relationship Specialty Start Date End Date Lanette Ramirez MD PCP - General Internal Medicine 10/04/12 05/06/23 [facility] Pcp PCP - General Internal Medicine 05/07/23 documented as of this encounter
--- OUTSIDE RECORDS SUMMARY | 2024-12-22 15:10 | XMS_ITS | Encounter Summary ---
Author Organization [facility] Address [address] [place] [address] Care Team Providers Care Detective Lieutenant Name Role Phone Lanette Ramirez MD Primary Care Provider Agus Faria, Pcp Primary Care Provider Travis e Encounter Details Date Type Department Care Team Description 11/21/2021 Refill Physiatry - [place] [address] [place] [address] Hermes Jaramillo PA-C Social History Tobacco Use [...] often do you attend chur ch or baptist services? Never 09/08/2021 Do you belong to any clubs o r organizations such as worship groups, unions, fraternal or athletic groups, or [...] file Not on file Not on file COVID-19 Exposure Response Date Recorded In the last month, have you been in contact with someone who was confirmed or suspected to have Coronavirus / COVID-19? No / Unsure 11/21/2021 9:02 AM EST documented as of this encounter Plan of Treatment Not on file documented as of this encounter Visit Diagnoses Not on filedocumented in this encounter Care Teams Detective Lieutenant Relationship Specialty Start Date End Date Lanette Ramirez MD PCP - General Internal Medicine 10/04/12 05/06/23 [facility], Pcp PCP - General Internal Medicine 05/07/23 documented as of this encounter
--- OUTSIDE RECORDS SUMMARY | 2024-12-22 15:10 | XMS_ITS | Clinical Summary ---
Author Organization [facility] Address [address] [place] [address] Care Team Providers Care Asphalt Patcher Name Role Phone Community, Pcp Primary Care Provider Unavailabl e Allergies No known active allergies Medications Medication Sig Dispensed Refills Start Date End Date Status [id number] INE 50-325-40 MG OR TABS (FIORICET, ESGIC) per tablet Take 1 tablet by mouth every 4 hours as needed. 0 Active loratadine (CLARITIN) 10 MG tablet Take 10 mg by mouth daily. 0 Active lorazepam (ATIVAN) 0.5 MG tablet Take 2 Tabs by mouth every 6 hours as needed for Anxiety for up to 7 days. 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 Anxiety Immunizations Name Administration Dates Next Due COVID-19 (Pfizer) 2021,02/16/2021 Influenza (> 6 Months) 06/17/2014,06/06/2013, Influenza Flu (PT Reported) 06/15/2017, 5 Influenza vaccine high dose age 65 and over 06/24,06/20/2019 Tdap 06/06/2012 Zostavax 06/18/2012,06/12/2012 Family History Medical History Relation Name Comments [place] Father [place] Lung Mother Diabetes Mother Relation Name Status Comments Brother Alive healthy Father (Age 59) [place] Mother (Age 53) lung cance r; DM Sister Alive smoker Son 1 Alive healthy Son 2 Alive healthy Son 3 Alive healthy Social History Tobacco Use Types Packs/Day Years Used Date Smoking Tobacco: Former Cigarettes 1 20 Q uit: 09/24/1992 Smokeless Tobacco: Former Alcohol Use Standard Drinks/Week Comments Yes 2.5 (1 standard drink = 0.6 oz p ure alcohol) occ Alcohol Habits Answer Date Recorded How often [...] How often do you attend chur or restoration services? Never 09/08/2021 Do you belong to any clubs o r organizations such as uatsdin groups, unions, fraternal or athletic groups, or [...] place to sleep or slept in a residential (including now)? No 09/08/2021 Sex Assigned at Date Recorded Not on file Job Start Date Occupation Industry Not on file Not on file Not on file Last Filed Vital Signs Vital Sign Reading Time Taken Comments Blood Pressure 110/70 01/06/2022 1:04 PM EDT Pulse 62 01/06/2022 1:04 PM EDT Temperature 36.9 ??C (98.4 ??F) 01/06/2022 1:04 PM ED T Respiratory Rate 16 01/06/2022 1:04 PM EDT Oxygen Saturation 97% 01/06/2022 1:32 PM EDT Inhaled Oxygen Concentration - - Weight 83 kg (183 lb) 01/06/2022 1:04 PM EDT Height 163.8 cm (5' 4.5 ) 01/06/2022 1:04 PM EDT Body Mass Index 30.93 01/06/2022 1:04 PM EDT Plan of Treatment Health Maintenance Due Date Last Done Comments SHINGLES VACCINE (2 of 3) 08/13/2012 06/18/2012, BONE DENSITY SCREENING 2018 DTAP/TDAP/TD (2 - Td or Tdap) 06/06/2022 06/06/2012 DEPRESSION SCREEN 09/08/2022 09/08/2021 FALL RISK ASSESSMENT 09/08/2022 09/08/2021 MAMMOGRAM 10/08/2022 10/08/2021, 01/22, 11/21/2012 (External Completion), Additional history exists Covid-19 Vaccine (3 - 2022-2 4 season) 2024 2021, 02/16/2021 INFLUENZA (#1) 2024 07/03/2021, 05/26, 06/15/2017, Additional history exists BMI CHECK/ADVISE 09/24/2024 11/21/2021, 11/2019, 03/14/2016 CHOLESTEROL SCREENING 11/21/2026 11/21/2021 , 03/17/2016, 05/20/2014, Additional history exists COLON CANCER SCREENING 03/25/2030 0, 03/25/2020 (Completed), 07/21/2012 (External Completion) HEPATITIS C SCREENING Completed 06/09/2013 PNEUMOCOCCAL VACCINE Completed 06/22/2020, 07/19/20 18 Care Teams Asphalt Patcher Relationship Specialty Start Date End Date Community, Pcp PCP - General Internal Medicine 05/07/23
--- OUTSIDE RECORDS SUMMARY | 2024-12-22 15:10 | XMS_ITS | Encounter Summary ---
Author Organization [facility] Address [address] [place] [address] Care Team Providers Care Chief Jailer Name Role Phone Lanette Ramirez MD Primary Care Provider Agus Faria, Pcp Primary Care Provider Travis e Encounter Details Date Type Department Care Team Description 08/22/2016 Orders Only Medicine/Pediatrics - [place] [address] [place] [phone] Vikram Gracia PA-C Social History Tobacco Use Types Packs/Day [...] often do you attend chur ch or evangelical services? Never 09/08/2021 Do you belong to any clubs o r organizations such as temple groups, unions, fraternal or athletic groups, or [...] place to sleep or slept in a [facility] (including now)? No 09/08/2021 Sex Assigned at Date Recorded Not on file Job Start Date Occupation Industry Not on file Not on file Not on file documented as of this encounter Plan of Treatment Not on file documented as of this encounter Visit Diagnoses Not on filedocumented in this encounter Care Teams Chief Jailer Relationship Specialty Start Date End Date Lanette Ramirez MD PCP - General Internal Medicine 10/04/12 05/06/23 Brien Faria PCP - General Internal Medicine 05/07/23 documented as of this encounter
== END 2024-12-22 14:55 | disposition home or self-care (01) ==
LOC: HO.HNS 13:28
PROVIDERS: PCP Internal Medicine; Referring Provider Internal Medicine; Visit Provider Physician Assistant
DX: M54.16 Radiculopathy, lumbar region (principal)
CPT/HCPCS: 99205

== ENCOUNTER 2024-12-22 13:27 | Outpatient (REF) | payer MEDICARE, OTHER, SELFPAY ==
--- NOTE | ~2024-12-22 | XR_ITS ---
EXAMINATION: X-RAY LUMBAR SPINE 4 VIEWS. CLINICAL INFORMATION: Radiculopathy, lumbar region. TECHNIQUE: 4 views lumbar spine including flexion and extension. COMPARISON: Correlated to MRI dated September 03, 2024. FINDINGS: Multilevel endplate sclerosis. Grade 1 anterolisthesis at L4-5 in neutral position which persists during flexion and extension. There is mild 10% volume loss of the vertebral bodies in the lower thoracic and upper lumbar spine. No acute cortical disruption. No lytic or blastic lesions. Vascular calcifications, abdominal aorta. XR/XR lumbar spine 4V min IMPRESSION: Grade 1 anterolisthesis L4-5 without instability/motion. Electronically signed by: August Bowens MD 12/23/2024 08:22 AM EDT
--- OUTSIDE RECORDS SUMMARY | 2024-12-22 16:13 | XMS_ITS | Encounter Summary ---
Author Organization [facility] Address [address] [place] [address] Care Team Providers Care Heavy Truck Technician Name Role Phone Lanette Ramirez MD Primary Care Provider Agus Faria, Pcp Primary Care Provider Travis villar Encounter Details Date Type Department Care Team Description 03/18/2020 Pt. Non Urgent Medic al Question Physiatry - [place] [address] [place] [address] Hermes Jaramillo PA-C Social History Tobacco Use [...] often do you attend chur ch or scientologist services? Never 09/08/2021 Do you belong to any clubs o r organizations such as mosque groups, unions, fraternal or athletic groups, or [...] on filedocumented in this encounter Care Teams Heavy Truck Technician Relationship Specialty Start Date End Date Lanette Ramirez MD PCP - General Internal Medicine 10/04/12 [facility] 05/07/23 documented as of this encounter
--- OUTSIDE RECORDS SUMMARY | 2024-12-22 16:13 | XMS_ITS | Encounter Summary ---
Author Organization [facility] Address [address] [place] [address] Care Team Providers Care Aircraft Hydraulic Equipment Mechanic Name Role Phone Lanette Ramirez MD Primary Care Provider Agus Faria Pcp Primary Care Provider Travis e Encounter Details Date Type Department Care Team Description 10/06/2013 Pt. Non Urgent Medic al Question Medicine/Pediatrics - [place] [address] [place] [phone] Lanette Ramirez MD Social History Tobacco Use [...] any clubs o r organizations such as gnosticist groups, unions, fraternal or athletic groups, or [...] place to sleep or slept in a fdc (including now)? No 09/08/2021 Sex Assigned at [...] on filedocumented in this encounter Care Teams Aircraft Hydraulic Equipment Mechanic Relationship Specialty Start Date End Date Lanette Ramirez MD PCP - General Internal Medicine 10/04/12 05/06/23 [facility], Pcp PCP - General Internal Medicine 05/07/23 documented as of this encounter
--- OUTSIDE RECORDS SUMMARY | 2024-12-22 16:13 | XMS_ITS | Encounter Summary ---
Author Organization [facility] Address [address] [place] [address] Care Team Providers Care Machinist Linotype Name Role Phone Lanette Ramirez MD Primary Care Provider Agus Faria, Pcp Primary Care Provider Travis e Encounter Details Date Type Department Care Team Description 06/22/2017 Pt. Non Urgent Medic al Question Medicine/Pediatrics - [place] [address] [place] [phone] Magy Vela PA-C Social History Tobacco Use Types Packs/Day [...] often do you attend chur ch or anglican services? Never 09/08/2021 Do you belong to any clubs o r organizations such as zoroastrianism groups, unions, fraternal or athletic groups, or [...] place to sleep or slept in a care home (including now)? No 09/08/2021 Sex Assigned at Date Recorded Not on file Job Start Date Occupation Industry Not on file Not on file Not on file documented as of this encounter Progress Notes * Maryam Saucedo L.P.N. - 06/22/2017 3:08 PM EDTFrom: Nancy Lindsay To: Magy Vela PA-C Sent: 06/22/2017 3:04 PM EDT Subject: results on streph? Deon Bhatti: I have been taking the antibiotic as directed, still have a cough, and my throat still gets very painful at times , I was wondering if anything came back on the strep test. Also, do I need to continue the meclizine you prescribed? I have a script of 90. documented in this encounter Plan of Treatment Not on file documented as of this encounter Visit Diagnoses Not on filedocumented in this encounter Care Teams Machinist Linotype Relationship Specialty Start Date End Date Lanette Ramirez MD PCP - General Internal Medicine 10/04/12 05/06/23 [facility], Pcp PCP - General Internal Medicine 05/07/23 documented as of this encounter
--- OUTSIDE RECORDS SUMMARY | 2024-12-22 16:13 | XMS_ITS | Encounter Summary ---
Author Organization [facility] Address [address] [place] [address] Care Team Providers Care Wallet Assembler Name Role Phone Lanette Ramirez MD Primary Care Provider Agus Faria, Pcp Primary Care Provider Travis villar Encounter Details Date Type Department Care Team Description 03/18/2020 Pt. Non Urgent Medic al Question Physiatry - [place] [address] [place] [address] Hermes Jaramillo PA-C Social History Tobacco Use [...] often do you attend chur ch or zoroastrianism services? Never 09/08/2021 Do you belong to any clubs o r organizations such as restorationism groups, unions, fraternal or athletic groups, or [...] on filedocumented in this encounter Care Teams Wallet Assembler Relationship Specialty Start Date End Date Lanette Ramirez MD PCP - General Internal Medicine 10/04/12 05/06/23 [facility] - [facility] 05/07/23 documented as of this encounter
--- OUTSIDE RECORDS SUMMARY | 2024-12-22 16:13 | XMS_ITS | Encounter Summary ---
Author Organization [facility] Address [address] [place] [address] Care Team Providers Care X Ray Operator Name Role Phone Lanette Ramirez MD Primary Care Provider Agus Faria, Pcp Primary Care Provider Travis villar Encounter Details Date Type Department Care Team Description 03/13/2013 Pt. Non Urgent Medic al Question Medicine/Pediatrics - [place] [address] [place] [phone] Magy Vela PA-C Social History Tobacco Use Types Packs/Day Years Used Date Smoking Tobacco: Former Cigarettes 1 20 Q uit: 09/24/1992 Alcohol Use Standard Drinks/Week Comments Not Asked 0 (1 standard drink = 0.6 oz pur e alcohol) Alcohol Habits Answer Date Recorded How [...] often do you attend chur ch or methodist services? Never 09/08/2021 Do you belong to any clubs o r organizations such as hinduism groups, unions, fraternal or athletic groups, or [...] Progress Notes * Vannesa Hawkins L.P.N. - 03/13/2013 4:46 PM EDTFrom: NANCY LINDSAY To: Magy Carpenter PA-C Sent: [facility] Mar 13, 2013 4:29 PM Subject: coughing not getting any better Deon Bhatti.... I just need you to be aware that the coughing and congestion has not improved. I am still on the antibiotic but things do not seem to be improving. I am also waiting on an order for blood work for carline so he can get his cat scan next Sunday. documented in this encounter Plan of Treatment Not on file documented as of this encounter Visit Diagnoses Not on filedocumented in this encounter Care Teams X Ray Operator Relationship Specialty Start Date End Date Lanette Ramirez MD PCP - General Internal Medicine 10/04/12 05/06/23 [facility], Pcp PCP - General Internal Medicine 05/07/23 documented as of this encounter
--- OUTSIDE RECORDS SUMMARY | 2024-12-22 16:14 | XMS_ITS | Encounter Summary ---
Author Organization [facility] Address [address] [place] [address] Care Team Providers Care Student Finance Advisor Name Role Phone Lanette Ramirez MD Primary Care Provider Agus Faria, Pcp Primary Care Provider Travis e Encounter Details Date Type Department Care Team Description 03/06/2020 Pt. Non Urgent Medic al Question Medicine/Pediatrics - [place] [address] [place] [phone] Lanette Ramirez MD Social History Tobacco Use [...] often do you attend chur ch or synagogue services? Never 09/08/2021 Do you belong to any clubs o r organizations such as christianity groups, unions, fraternal or athletic groups, or [...] place to sleep or slept in a correction (including now)? No 09/08/2021 Sex Assigned at Date Recorded Not on file Job Start Date Occupation Industry Not on file Not on file Not on file documented as of this encounter Progress Notes * Vannesa Hawkins L.P.N. - 03/08/2020 9:10 AM EDTFrom: Nancy Lindsay To: Lanette Ramirez MD Sent: 03/06/2020 9:11 AM EDT Subject: bit of confusion morning , I had scheduled and was seen by Karine Nassar on 02/25/20, for abdominal pain and issues with my back or hip, she checked my range and ordered muscle relaxers. She referred me to Gastrology and I saw Juan Carlos Oswaldpas. I am sceduled for a colonoscopy on , of which i had requested and am 2 years early , but Im having issues. On March 02, I ended up in extreme pain in either my back or my right hip.... the pain rediates so badly I dont know where its coming from...I called the office and was contacted back by Maryam, who recommed icing it, I told her I would let it calm down and call back if needed, the muscle relaxers didnt touch it. I called back at 8:30 am on the , and was called b lokesh at 1pm by Shannon, she said she would contact Nora root, not hearing back from her..I called Againat 3pm, evidentally someone was supposed to contact me asking me which Id like, a PT, Chiropractor,I said I dont want anyone touching me until I know what the problem is! she said she would call back, at 3:30 she finally called back stating that I could have an xray done. I told her, I couldntmake there by 5pm. So I now have to wait until Singh... the spasms on my right side are awful. Shannon said the order will be for my lower back. I need the xrays to cover my mid back and my right hip.Ill get the xray Sunday. It has been an awful experience trying to get some answers from the right people, I realize things are hectic, but this back and forth thing and trying to contact professionals is unreal, and being in this pain doesnt make it better.Could you perhaps check to be sure I get the correct areas xrayed? Bernardo nk you documented in this encounter Plan of Treatment Not on file documented as of this encounter Visit Diagnoses Not on filedocumented in this encounter Care Teams Student Finance Advisor Relationship Specialty Start Date End Date Lanette Ramirez MD PCP - General Internal Medicine 10/04/12 05/06/23 [facility], Pcp PCP - General Internal Medicine 05/07/23 documented as of this encounter
--- OUTSIDE RECORDS SUMMARY | 2024-12-22 16:14 | XMS_ITS | Encounter Summary ---
Author Organization [facility] Address [address] [place] [address] Care Team Providers Care Strategic Partnership Manager Name Role Phone Lanette Ramirez MD Primary Care Provider Agus Faria, Pcp Primary Care Provider Unavailabl e Reason for Visit * Reason Onset Date Comments Hip Pain 03/05/2020 Back Pain 03/05/2020 Encounter Details Date Type Department Care Team Description 03/05/2020 Telephone Adult Medicine [address] [address] Lanette Ramirez MD Hip Pain; Back Pain [...] How often do you attend chur or gnosticism services? Never 09/08/2021 Do you belong to [...] place to sleep or slept in a intermediate (including now)? No 09/08/2021 Sex Assigned at [...] 5. K[facility] Performing Organization Address [facility] Co de Phone Number SERGIO CALVO OTHER [...] changes. Kasey [facility] Performing Organization Address [facility] Co de Phone Number SERGIO CALVO OTHER EXTERNAL documented in this encounter Visit Diagnoses Diagnosis Acute right-sided low back pain without sciatica- Primary Right hip pain Pain in joint, pelvic region and thigh Acute right-sided low back pain without sciatica Right hip pain Pain in joint, pelvic region and thigh Acute right-sided low back pain without sciatica documented in this encounter Care Teams Strategic Partnership Manager Relationship Specialty Start Date End Date Lanette Ramirez MD PCP - General Internal Medicine 10/04/12 05/06/23 [facility] Pcp PCP - General Internal Medicine 05/07/23 documented as of this encounter
--- OUTSIDE RECORDS SUMMARY | 2024-12-22 16:14 | XMS_ITS | Encounter Summary ---
Author Organization [facility] Address [address] [place] [address] Care Team Providers Care Terminal Clerk Name Role Phone Lanette Ramirez MD Primary Care Provider Agus Faria, Pcp Primary Care Provider Travis e Encounter Details Date Type Department Care Team Description 04/27/2020 Pt. Non Urgent Medic al Question Medicine/Pediatrics - [place] [address] [place] [phone] Lanette Ramirez MD Social History Tobacco Use [...] often do you attend chur ch or uatsdin services? Never 09/08/2021 Do you belong to [...] place to sleep or slept in a half-way (including now)? No 09/08/2021 Sex Assigned at [...] received a message on My Chart, evidentially Kaesy Pina from the [place] office set up an ultrasound appt for [...] on filedocumented in this encounter Care Teams Terminal Clerk Relationship Specialty Start Date End Date Lanette Ramirez MD PCP - General Internal Medicine 10/04/12 05/06/23 [facility], Pcp PCP - General Internal Medicine 05/07/23 documented as of this encounter
--- OUTSIDE RECORDS SUMMARY | 2024-12-22 16:14 | XMS_ITS | Encounter Summary ---
Author Organization [facility] Address [address] [place] [address] Care Team Providers Care Medical Lab Assistant Name Role Phone Lanette Ramirez MD Primary Care Provider Agus Faria Pcp Primary Care Provider Travis e Encounter Details Date Type Department Care Team Description 04/01/2020 Orders Only Medical Records [address] [place] [address] Kaylee Yepez MD Social History Tobacco Use Types Packs/Day [...] often do you attend chur ch or restorationist services? Never 09/08/2021 Do you belong to any clubs o r organizations such as hoahaoism groups, unions, fraternal or athletic groups, or [...] place to sleep or slept in a [place] [facility] [place] (including now)? No 09/08/2021 Sex Assigned at Date Recorded Not on file Job Start Date Occupation Industry Not on file Not on file Not on file documented as of this encounter Plan of Treatment Not on file documented as of this encounter Procedures Procedure Name Priority Date/Time Associated Diagnosis Comments OUTSIDE PATHOLOGY Routine 03/25/2020 documented in this encounter Results * OUTSIDE PATHOLOGY (03/25/2020) Kaylee Yepez MD OUTSIDE LAB documented in this encounter Visit Diagnoses Not on filedocumented in this encounter Care Teams Medical Lab Assistant Relationship Specialty Start Date End Date Lanette Ramirez MD PCP - General Internal Medicine 10/04/12 05/06/23 [facility], Pcp PCP - General Internal Medicine 05/07/23 documented as of this encounter
--- OUTSIDE RECORDS SUMMARY | 2024-12-22 16:14 | XMS_ITS | Encounter Summary ---
Author Organization [facility] Address [address] [place] [address] Care Team Providers Care Dish Washer Name Role Phone Lanette Ramirez MD Primary Care Provider Agus Faria Pcp Primary Care Provider Travis villar Encounter Details Date Type Department Care Team Description 07/22/2015 Disbursement Clerk Report Medical Records [address] [place] [address] Paty Pelayo MD Social History Tobacco Use Types Packs/Day [...] often do you attend chur ch or jain services? Never 09/08/2021 Do you belong to [...] place to sleep or slept in a prison (including now)? No 09/08/2021 Sex Assigned at Date Recorded Not on file Job Start Date Occupation Industry Not on file Not on file Not on file documented as of this encounter Plan of Treatment Not on file documented as of this encounter Visit Diagnoses Not on filedocumented in this encounter Care Teams Dish Washer Relationship Specialty Start Date End Date Lanette Ramirez MD PCP - General Internal Medicine 10/04/12 05/06/23 Brien Faria PCP - General Internal Medicine 05/07/23 documented as of this encounter
--- OUTSIDE RECORDS SUMMARY | 2024-12-22 16:14 | XMS_ITS | Encounter Summary ---
Author Organization [facility] Address [address] [place] [address] Care Team Providers Care Director Work Name Role Phone Lanette Ramirez MD Primary Care Provider Agus Faria, Pcp Primary Care Provider Unavailabl e Reason for Visit * Reason Onset Date Comments Provider Call Back 03/15/2020 Encounter Details Date Type Department Care Team Description 03/15/[address] [facility] [place] [address] [place] [address] Hermes Jaramillo PA-C Provider Call Back Social [...] week 09/08/2021 How often do you attend [facility] or gnosticist services? Never 09/08/2021 Do you belong to any clubs o r organizations such as confucianist groups, unions, fraternal or athletic groups, or [...] place to sleep or slept in a detention (including now)? No 09/08/2021 Sex Assigned at [...] on filedocumented in this encounter Care Teams Director Work Relationship Specialty Start Date End Date Lanette Ramirez MD PCP - General Internal Medicine 10/04/12 [facility]06/23 [facility] - [facility] 05/07/23 documented as of this encounter
--- OUTSIDE RECORDS SUMMARY | 2024-12-22 16:14 | XMS_ITS | Encounter Summary ---
Author Organization [facility] Address [address] [place] [address] Care Team Providers Care Certified Coatings Inspector Name Role Phone Lanette Ramirez MD Primary Care Provider Agus Faria, Pcp Primary Care Provider Travis e Encounter Details Date Type Department Care Team Description 11/21/2021 Refill Physiatry - [place] [address] [place] [address] Hermes Jaramillo PA-C Social History Tobacco Use [...] often do you attend chur ch or amish services? Never 09/08/2021 Do you belong to [...] place to sleep or slept in a senior care (including now)? No 09/08/2021 Sex Assigned at [...] on filedocumented in this encounter Care Teams Certified Coatings Inspector Relationship Specialty Start Date End Date Lanette Ramirez MD PCP - General Internal Medicine 10/04/12 05/06/23 [facility], Pcp PCP - General Internal Medicine 05/07/23 documented as of this encounter
== END 2024-12-22 13:28 | disposition home or self-care (01) ==
LOC: HO.HOSX 13:27
PROVIDERS: PCP Internal Medicine; Referring Provider Internal Medicine; Visit Provider Physician Assistant
DX: M54.16 Radiculopathy, lumbar region (principal)
CPT/HCPCS: 72110; 99202

== ENCOUNTER → 2024-12-22 14:54 | Outpatient (BNV) | payer MEDICARE, OTHER, SELFPAY | PROVIDERS: PCP Internal Medicine; Referring Provider Internal Medicine; Visit Provider Radiology Diagnostic Radiology | DX: M54.16 Radiculopathy, lumbar region (principal) | CPT/HCPCS: 72110 ==

== ENCOUNTER 2025-02-11 14:26 | Outpatient (AMB) | payer MEDICARE, OTHER, SELFPAY ==
--- NOTE | 2025-02-11 14:30 | A.SPINEOV_ITS ---
Intake Visit Reasons: discuss surgery/meet Dr. Delvalle Intake Note: Ms. Lindsay is here today to Discuss Surgery and meet Dr. Bhakta. Junior Linux Administrator Required: No Allergies No Known Allergies Allergy (Verified 12/22/24 14:19) Assessment & Plan Assessment & Plan (1) Spondylolisthesis, lumbar region: Code(s): M43.16 - Spondylolisthesis, lumbar region Category: Medical (2) Lumbar stenosis with neurogenic claudication: Code(s): M48.062 - Spinal stenosis, lumbar region with neurogenic claudication Category: Medical Plan Dear colleague, On 02/11/2025, I saw for preoperative visit Nancy Lindsay. She is a 69-year-old female without a significant past medical history. She suffering from back pain and neurogenic claudication due to a grade 2 L4-5 spondylolisthesis with associated severe central spinal stenosis and bilateral L4 foraminal stenosis. She comes in to see if they are therapeutic options. She had a previous L4-5 lumbar decompression done in another institution. Think this patient is an excellent candidate for an oblique lumbar interbody fusion, a minimally invasive technique to correct the lumbar spondylolisthesis and to indirectly decompress the nervous structures. Another advantage is that I do not have to go through the previous operative field. I described the procedure in detail. She will most likely stay 1 night in the hospital. We also discussed postoperative expected course. She wants to proceed. I scheduled her for 06/05/2025. She will get a bill of health from you. I spent 30 minutes in his consult to go with the images and to discuss plan of care. David Bhakta MD, PhD Spine Fellowship Trained Neurosurgeon Director, [facility] Coding Level of Care Code Est Pt Level 4 (94117) Diagnoses Spondylolisthesis, lumbar region M43.16 Lumbar stenosis with neurogenic claudication M48.062
--- OUTSIDE RECORDS SUMMARY | 2025-02-11 14:41 | XMS_ITS | Encounter Summary ---
Author Organization [facility] Address [address] [place] [address] Care Team Providers Care Net Making Supervisor Name Role Phone Lanette Ramirez MD Primary Care Provider Agus Faria Pcp Primary Care Provider Travis villar Encounter Details Date Type Department Care Team Description 07/22/2015 Yard Coordinator Report Medical Records [address] [place] [address] Paty Pelayo MD Social History Tobacco Use [...] any clubs o r organizations such as baptism groups, unions, fraternal or athletic groups, or [...] on filedocumented in this encounter Care Teams Net Making Supervisor Relationship Specialty Start Date End Date Lanette Ramirez MD PCP - General Internal Medicine 10/04/12 05/06/23 Brien Faria PCP - General Internal Medicine 05/07/23 documented as of this encounter
--- OUTSIDE RECORDS SUMMARY | 2025-02-11 14:41 | XMS_ITS | Encounter Summary ---
Author Organization [facility] Address [address] [place] [address] Care Team Providers Care Relay Assembler Name Role Phone Lanette Ramirez MD Primary Care Provider Agus Faria, Pcp Primary Care Provider Travis e Encounter Details Date Type Department Care Team Description 06/22/2017 Pt. Non Urgent Medic al Question Medicine/Pediatrics - [place] [address] [place] [phone] Magy Vela PA-C Social History Tobacco Use [...] often do you attend chur ch or yarsanism services? Never 09/08/2021 Do you belong to any clubs o r organizations such as adventist groups, unions, fraternal or athletic groups, or [...] place to sleep or slept in a long-term (including now)? No 09/08/2021 Sex Assigned at [...] on filedocumented in this encounter Care Teams Relay Assembler Relationship Specialty Start Date End Date Lanette Ramirez MD PCP - General Internal Medicine 10/04/12 05/06/23 [facility], Pcp PCP - General Internal Medicine 05/07/23 documented as of this encounter
--- OUTSIDE RECORDS SUMMARY | 2025-02-11 14:41 | XMS_ITS | Encounter Summary ---
Author Organization [facility] Address [address] [place] [address] Care Team Providers Care Sales Promotion Director Name Role Phone Lanette Ramirez MD Primary Care Provider Agus Faria Pcp Primary Care Provider Travis e Encounter Details Date Type Department Care Team Description 10/06/2013 Pt. Non Urgent Medic al Question Medicine/Pediatrics - [place] [address] [place] [address] Lanette Ramirez MD Social History Tobacco Use [...] often do you attend chur ch or judaism services? Never 09/08/2021 Do you belong to any clubs o r organizations such as jain groups, unions, fraternal or athletic groups, or [...] place to sleep or slept in a skilled nursing (including now)? No 09/08/2021 Sex Assigned at [...] on filedocumented in this encounter Care Teams Sales Promotion Director Relationship Specialty Start Date End Date Lanette Ramirez MD PCP - General Internal Medicine 10/04/12 05/06/23 [facility], Pcp PCP - General Internal Medicine 05/07/23 documented as of this encounter
--- OUTSIDE RECORDS SUMMARY | 2025-02-11 14:41 | XMS_ITS | Encounter Summary ---
Author Organization [facility] Address [address] [place] [address] Care Team Providers Care Signal Manager Name Role Phone Lanette Ramirez MD Primary Care Provider Agus Faria, Pcp Primary Care Provider Unavailabl e Reason for Visit * Reason Onset Date Comments Provider Call Back 03/15/2020 Encounter Details Date Type Department Care Team Description 03/15/2020 [facility] [place] [address] [place] [address] Hermes Jaramillo PA-C Provider Call Back Social [...] week 09/08/2021 How often do you attend [facility] or zoroastrian services? Never 09/08/2021 Do you belong to any clubs o r organizations such as muslim groups, unions, fraternal or athletic groups, or [...] to sleep or slept in a senior living (including now)? No 09/08/2021 Sex Assigned at [...] on filedocumented in this encounter Care Teams Signal Manager Relationship Specialty Start Date End Date Lanette Ramirez MD PCP - General Internal Medicine 10/04/12 05/06/23 [facility] PCP - General Internal Medicine 05/07/23 documented as of this encounter
--- OUTSIDE RECORDS SUMMARY | 2025-02-11 14:41 | XMS_ITS | Encounter Summary ---
Author Organization [facility] Address [address] [place] [address] Care Team Providers Care Accountant Supervisor Name Role Phone Lanette Ramirez MD Primary Care Provider Agus Faria, Pcp [facility] Reason for Visit * Reason Onset Date Comments medication problems 03/12/2020 Encounter Details Date Type Department Care Team Description 03/12/2020 Telephone Adult Medicine [address] [address] Lanette Ramirez MD medication problems Social History Tobacco Use Types Packs/Day Years [...] encounter Miscellaneous Notes * Telephone Encounter - Fede Delgadillo M.A. - 03/16/2020 2:09 PM EDT Spoke to pharmacist they never needed an alternative . Pharmacist states that the script was put intoo soon, the insurance won't pay pay for it until tomorrow. * Telephone Encounter - MALICK Peter - 03/16/2020 8:07 AM EDT Is this not covered by insurance? I spoke with pharmacy last week about this and they reported that5 mg tablet was covered. I have been out for the last few days. This ideally should have been sent to another provider if patient has been without Rx for 4 days. Please let me know when you get in touch with pharmacy. * Telephone Encounter - Ania Morrison - 03/12/2020 3:07 PM EDT Who is calling? A pharmacist: Pharmacy: [facility] Pharmacist Name: [facility] Name of the medication cyclobenzaprine (FLEXERIL) 5 MG tablet What is the specific problem or interaction? Alternative requested If the patient is having a problem with taking the med - how long has the problem been going on? N/A documented in this encounter Plan of Treatment Not on file documented as of this encounter Visit Diagnoses Not on filedocumented in this encounter Care Teams Accountant Supervisor Relationship Specialty Start Date End Date Lanette Ramirez MD PCP - General Internal Medicine 10/04/12 05/06/23 [facility], Pcp PCP - General Internal Medicine 05/07/23 documented as of this encounter
--- OUTSIDE RECORDS SUMMARY | 2025-02-11 14:41 | XMS_ITS | Encounter Summary ---
Author Organization [facility] Address [address] [place] [address] Care Team Providers Care Elevator Examiner Name Role Phone Lanette Ramirez MD Primary Care Provider Agus Faria, Pcp Primary Care Provider Unavailbrandi e Reason for Visit * Reason Onset Date Comments APPOINTMENT 07/23/2020 Ultrasound order ed 02/2020 Encounter Details Date Type Department Care Team Description 07/23/2020 Pt. Non Urgent Medical Question Adult Medicine [address] [address] Kasey Pina PA [address] [place] [address] Social History Tobacco Use Types Packs/Day Years [...] week 09/08/2021 How often do you attend [facility] or yarsani services? Never 09/08/2021 Do you belong to any clubs o r organizations such as sikh groups, unions, fraternal or athletic groups, or [...] place to sleep or slept in a penitentiary (including now)? No 09/08/2021 Sex Assigned at Date Recorded Not on file Job Start Date Occupation Industry Not on file Not on file Not on file documented as of this encounter Miscellaneous Notes * Telephone Encounter - Layla Hernandez M.A. - 07/23/2020 8:34 AM EDTFrom: Nancy Lindsay To: MALICK Peter Sent: 07/23/2020 8:16 AM EDT Subject: ultra sound of abdomen good morning , In March I believe you had an order of an ultra sound of my abdomen approved. I saw it was good for a year, could you check to be sure its approved by my insurance? I think I should probably have it completed, I have had the colonoscopy done in March and I am still having a small issuein m y lower ab area. who do I contact to set the appt up for this ultra sound? documented in this encounter Plan of Treatment Not on file documented as of this encounter Visit Diagnoses Not on filedocumented in this encounter Care Teams Elevator Examiner Relationship Specialty Start Date End Date Lanette Ramirez MD PCP - General Internal Medicine 10/04/12 05/06/23 Brien Faria PCP - General Internal Medicine 05/07/23 documented as of this encounter
--- OUTSIDE RECORDS SUMMARY | 2025-02-11 14:41 | XMS_ITS | Encounter Summary ---
Author Organization [facility] Address [address] [place] [address] Care Team Providers Care Hospitality Team Member Name Role Phone Lanette Ramirez MD Primary Care Provider Agus Faria, Pcp Primary Care Provider Travis e Encounter Details Date Type Department Care Team Description 03/16/2020 Orders Only Physiatry - [place] [address] [place] [address] Hermes Jaramillo PA-C Social History Tobacco Use [...] often do you attend chur ch or muslim services? Never 09/08/2021 Do you belong to any clubs o r organizations such as yazidi groups, unions, fraternal or athletic groups, or [...] on filedocumented in this encounter Care Teams Hospitality Team Member Relationship Specialty Start Date End Date Lanette Ramirez MD PCP - General Internal Medicine 10/04/12 05/06/23 Brien Faria PCP - General Internal Medicine 05/07/23 documented as of this encounter
--- OUTSIDE RECORDS SUMMARY | 2025-02-11 14:41 | XMS_ITS | Encounter Summary ---
Author Organization [facility] Address [address] [place] [address] Care Team Providers Care Diesel Locomotive Crane Operator Name Role Phone Lanette Ramirez MD Primary Care Provider Agus Faria, Pcp Primary Care Provider Travis villar Encounter Details Date Type Department Care Team Description 03/18/2020 Pt. Non Urgent Medic al Question Physiatry - [place] [address] [place] [address] Hermes Jaramillo PA-C Social History Tobacco Use [...] any clubs o r organizations such as evangelical groups, unions, fraternal or athletic groups, or [...] on filedocumented in this encounter Care Teams Diesel Locomotive Crane Operator Relationship Specialty Start Date End Date Lanette Ramriez MD PCP - General Internal Medicine 10/04/12 [facility] - [facility]07[facility]23 documented as of this encounter
--- OUTSIDE RECORDS SUMMARY | 2025-02-11 14:42 | XMS_ITS | Encounter Summary ---
Author Organization [facility] Address [address] [place] [address] Care Team Providers Care Beef Cattle Farm Manager Name Role Phone Lanette Ramirez MD Primary Care Provider Agus Faria Pcp Primary Care Provider Travis villar Encounter Details Date Type Department Care Team Description 04/07/2020 Hospital Medical Records [address] [place] [address] Demetrius Galindo MD Social History Tobacco Use Types Packs/Day [...] any clubs o r organizations such as yazdanism groups, unions, fraternal or athletic groups, or [...] on filedocumented in this encounter Care Teams Beef Cattle Farm Manager Relationship Specialty Start Date End Date Lanette Ramirez MD PCP - General Internal Medicine 10/04/12 05/06/23 Brien Faria PCP - General Internal Medicine 05/07/23 documented as of this encounter
--- OUTSIDE RECORDS SUMMARY | 2025-02-11 14:42 | XMS_ITS | Encounter Summary ---
Author Organization [facility] Address [address] [place] [address] Care Team Providers Care Business Center Attendant Name Role Phone Lanette Ramirez MD Primary Care Provider Agus Faria, Pcp Primary Care Provider Travis e Encounter Details Date Type Department Care Team Description 04/27/2020 Pt. Non Urgent Medic al Question Medicine/Pediatrics - [place] [address] [place] [address] Lanette Ramirez MD Social History Tobacco Use [...] often do you attend chur ch or cheondoism services? Never 09/08/2021 Do you belong to any clubs o r organizations such as congregational groups, unions, fraternal or athletic groups, or [...] place to sleep or slept in a nursing home (including now)? No 09/08/2021 Sex Assigned [...] a message on My Chart, evidentially Kasey Pina from the [place] office set up an ultrasound appt for [...] on filedocumented in this encounter Care Teams Business Center Attendant Relationship Specialty Start Date End Date Lanette Ramirez MD PCP - General Internal Medicine 10/04/12 05/06/23 [facility], Pcp PCP - General Internal Medicine 05/07/23 documented as of this encounter
== END 2025-02-11 15:05 | disposition home or self-care (01) ==
LOC: HO.HNS 14:27
PROVIDERS: PCP Internal Medicine; Visit Provider Neurological Surgery
DX: M43.16 Spondylolisthesis, lumbar region (principal); M48.062 Spinal stenosis, lumbar region with neurogenic claudication
CPT/HCPCS: 99214

== ENCOUNTER → 2025-02-11 14:26 | Outpatient (BNVA) | payer MEDICARE, OTHER, SELFPAY | PROVIDERS: PCP Internal Medicine; Visit Provider Neurological Surgery | DX: M43.16 Spondylolisthesis, lumbar region (principal); M48.062 Spinal stenosis, lumbar region with neurogenic claudication | CPT/HCPCS: 99212 ==

== ENCOUNTER 2025-03-02 14:45 | Outpatient (AMB) | payer MEDICARE, OTHER, SELFPAY ==
--- NOTE | 2025-03-02 15:05 | A.OFFPC_ITS ---
Vital Signs 03/02/25 15:11 Weight 166 lb 8 oz BP 112/72 Blood Pressure Location Lt brachial Position Sitting Respiration 12 Pulse 62 Pulse Source Pulse Oximeter Pulse Oximetry (%) 99 Oxygen Delivery Method Room Air Intake Visit Reasons: lumbar spondylolisthesis Intake Note: Preop back infusion. Allergies zolpidem [From Ambien] Allergy (Verified 03/03/25 12:13) Confusion Tobacco use date assessed: 01/17/24 Dental Screening Dental Screen Date: 01/17/24 HPI HPI Comments History of Present Illness Details 69 year female with a past medical histo ry of hyperlipidemia, migraine presenting for preoperative cardiac exam-she has planned oblique lumbar interbody fusion with Dr Bhakta on March 17, 2025 She has no history of CAD, no history of lung disease, no JESSICA, no history of CKD or diabetes She is able to walk, climb stairs and do housework without any shortness of breath or chest pain She has tolerated anesthesia in the past Migraines-Takes fioricet as needed, sparingly Hyperlipidemia-On lipitor 20mg daily She has known back pain and neurogenic claudication due to a grade 2 L4-5 spondylolisthesis with associated severe central spinal stenosis and bilateral L4 foraminal stenosis for which this surgery is planned ROS see HPI PHYSICAL EXAM: GENERAL: Alert and oriented x 3. NAD EYES: EOMI. Anicteric. HENT: Moist mucous membranes. No scleral icterus. No cervical lymphadenopathy. LUNGS: Clear to auscultation bilaterally. CARDIOVASCULAR: Regular rate and rhythm. No murmur. No JVD. ABDOMEN: Soft, non-tender +bs EXTREMITIES: No edema. Non-tender. SKIN: No rashes or lesions. Warm. NEUROLOGIC: No interval changes PSYCHIATRIC: Cooperative. Appropriate mood and affect REPLACED BY [facility] Medical History Arthritis Back pain Hyperlipidemia Migraine Surgical History H/O colonoscopy History of partial hysterectomy History of appendectomy History of bunionectomy of left great toe History of carpal tunnel release of both wrists History of back surgery Family History Mother Lung cancer Maternal Grandmother Pancreatic cancer Social History Housing: House Are you a primary career services assistant to a significant other at home: No Do you presently have visiting nurse or other home services: No Patient Tobacco Use Status: Never used Tobacco e-Cigarette/Vaping Use: Never Used Second Hand Smoke Exposure: No service: No Current occupational status: retired Cognitive needs: No Hearing needs: No Vision needs: Yes (glasses to read) Questionnaire PHQ-9 Over the last 2 weeks, how often have you been bothered by any of the following problems? 1. Little interest or pleasure in doing things: not at all 2. Feeling down, depressed, or hopeless: not at all 3. Trouble falling or staying asleep, or sleeping too much: not at all 4. Feeling tired or having little energy: not at all 5. Poor appetite or overeating: not at all 6. Feeling bad about yourself - or that you are a failure or have let yourself or your family down: not at all 7. Trouble concentrating on things, such as reading the newspaper or watching television: not at all 8. Moving or speaking so slowly that other people could have noticed. Or the opposite - being so fidgety or restless that you have been moving around a lot more than usual: not at all 9. Thoughts that you would be better off or of hurting yourself in some way: not at all Total score: 0 Source: Developed by Drs. Ron Mark, Sarah West, Nicholas Collier and colleagues, with an educational ghislaine from [employer]. Thrive Questionnaire Date Thrive assessed: 07/01/24 I am a: Patient What is your living situation today?: I have a steady place to live Within the past 12 months, did the food you bought not last and you didn't have the money to get more?: Never true Within the past 12 months, did you worry whether your food would run out before you got money to buy more?: Never true Do you have trouble paying for medicines?: No Do you have trouble getting transportation to medical appointments?: No Do you have trouble paying your heating and electricity bill?: No Do you have trouble taking care of your child, family member or friend?: No Do you have trouble with day-to-day activities such as bathing, preparing meals, shopping, managing finances, etc.?: No Are you currently unemployed and looking for a job?: No Are you interested in more education?: No Please select the resources that you would like help with: None Currently or been in a relationship where the following occur: No concerns reported THRIVE Score: 0 AUDIT C Alcohol Use Questionnaire (AUDIT-C) 1. How often do you have a drink containing alcohol?: 2-4 times a month 2. How many drinks containing alcohol do you have on a typical day when you are drinking?: 1 or 2 3. How often do you have six or more drinks on one occasion?: Never Total Score: 2 NADINE-7 AMB Questionnaire NADINE-7 Date NADINE - 7 assessed: 01/17/24 Feeling nervous, anxious, or on edge: 0 = Not at all Not being able to stop or control worryin = Not at all Worrying too much about different things: 0 = Not at all Trouble relaxin = Not at all Being so restless that it is hard to sit still: 0 = Not at all Becoming easily annoyed or irritable: 0 = Not at all Feeling afraid as if something awful might happen: 0 = Not at all Total NADINE-7 score (0-4 normal; 5-9 mild; 10-14 moderate; 15-21 severe): 0 Source: Developed by Drs. Ron Mark, Sarah West, Nicholas Collier and colleagues, with an educational ghislaine from [employer]. Physical exam (Primary Care) Vital Signs: Last Vital Signs Pulse 62 03/02/25 15:11 Resp 12 03/02/25 15:11 BP 112/72 03/02/25 15:11 Pulse Ox 99 03/02/25 15:11 Oxygen Delivery Method Room Air 03/02/25 15:11 Tobacco/Smoking Status: Tobacco use Status Tobacco use date assessed 01/17/24 03/02/25 15:05 Patient Tobacco Use Status Never used Tobacco 03/02/25 15:05 e-Cigarette/Vaping Use Never Used 03/02/25 15:05 PHQ-9: PHQ-9 Score PHQ-9: Total score 0 03/02/25 15:08 Thrive Assessment: Date of Thrive Assessment Date Thrive assessed 07/01/24 03/02/25 15:05 Currently or been in a relationship where the following occur: No concerns reported Coding Level of Care Code Est Pt Level 4 (82665) Complex EM visit Add On G2211 Diagnoses Preoperative cardiovascular examination Z01.810 Lumbar stenosis with neurogenic claudication M48.062 Assessment & Plan Assessment & Plan (1) Preoperative cardiovascular examination: Code(s): Z01.810 - Encounter for preprocedural cardiovascular examination Category: Medical (2) Lumbar stenosis with neurogenic claudication: Code(s): M48.062 - Spinal stenosis, lumbar region with neurogenic claudication Category: Medical Plan 69 year old for pre op cardiac assessment RCRI score 0 Mets>/= 4 EKG reviewed, no Q waves, no LBBB. nonspecific t wave changes No chest pain, no exertional dyspnea Low risk patient for average risk procedure Ok to proceed without further cardiac testing Orders: Orders Prothrombin Time INR 03/02/25 E78.2 - Mixed hyperlipidemia, M43.16 - Spondylolisthesis, lumbar region, Z01.810 - Encounter for preprocedural cardiovascular examination Complete Blood Count Auto Diff 03/02/25 E78.2 - Mixed hyperlipidemia, M43.16 - Spondylolisthesis, lumbar region, Z01.810 - Encounter for preprocedural cardiovascular examination Comprehensive Met. Panel 03/02/25 E78.2 - Mixed hyperlipidemia, M43.16 - Spondylolisthesis, lumbar region, Z01.810 - Encounter for preprocedural cardiovascular examination Lipid Panel 03/02/25 E78.2 - Mixed hyperlipidemia, M43.16 - Spondylolisthesis, lumbar region, Z01.810 - Encounter for preprocedural cardiovascular examination
[2025-03-02 15:11] VITALS: BP 112/72; PULSE 62; RESP 12; O2SAT 99
== END 2025-03-02 15:31 | disposition home or self-care (01) ==
LOC: HO.HMCFM 14:46
PROVIDERS: PCP Internal Medicine; Visit Provider Internal Medicine
DX: Z01.810 Encounter for preprocedural cardiovascular examination (principal); M48.062 Spinal stenosis, lumbar region with neurogenic claudication

== ENCOUNTER → 2025-03-02 14:45 | Outpatient (BNVA) | payer MEDICARE, OTHER, SELFPAY | PROVIDERS: PCP Internal Medicine; Visit Provider Internal Medicine | DX: Z13.89 Encounter for screening for other disorder (principal) | CPT/HCPCS: 99212 ==

== ENCOUNTER 2025-03-02 15:49 | Outpatient (REF) | payer MEDICARE, OTHER, SELFPAY ==
[2025-03-02 17:38] LABS: MANUAL DIFF FLAG NO
[2025-03-02 17:49] LABS: Basophils Percent Auto 0.6 % (0-2); Eosinophils Absolute Auto 0.1 X10*3/uL (0.0-0.4); Eosinophils Percent Auto 2.2 % (0-4); Hematocrit 36.9 % (37.0-47.0); Hemoglobin 12.6 g/dl (12.0-16.0); Imm Gran Abs Auto 0.02 X10*3/uL (0.00-0.03); Imm Gran Pct Auto 0.4 % (0.0-0.4); Lymphocytes Absolute Auto 1.8 X10*3/uL (1.2-4.9); Lymphocytes Percent Auto 34.4 % (20-40); Mean Corpuscular HGB Conc 34.1 g/dl (31.0-35.0); Mean Corpuscular Hemoglobin 33.6 pg (27.0-33.0); Mean Corpuscular Volume 98.4 fL (80.0-98.0); Mean Platelet Volume 9.8 fL (9.4-12.3); Monocytes Absolute Auto 0.4 X10*3/uL (0.1-1.2); Monocytes Percent Auto 7.5 % (2-11); Neutrophils Absolute Auto 2.8 x10*3/uL (2.0-8.3); Neutrophils Percent Auto 54.9 % (45-73); Platelet Count 217 X10*3/uL (160-400); Red Blood Count 3.75 X10*6/uL (4.20-5.50); Red Cell Distribution Width 13.4 % (11.0-16.0); White Blood Count 5.1 X10*3/uL (4.8-10.8)
[2025-03-02 17:55] LABS: INTERNATIONAL NORM RATIO 0.9 (0.9-1.1); Prothrombin Time 10.5 SEC (10.9-12.4)
[2025-03-02 18:08] LABS: Alanine Aminotransferase 23 U/L (0-31); Albumin Level 4.4 g/dL (3.5-5.0); Alkaline Phosphatase 63 U/L (39-117); Anion Gap 11 (12-20); Aspartate Amino Transferase 31 U/L (5-31); Bilirubin Total 0.8 mg/dL (0.0-1.0); Blood Urea Nitrogen 16 mg/dL (9-16); Carbon Dioxide 30 mmol/L (22-29); Chloride 105 mmol/L (96-108); Cholesterol 190 mg/dL (<200); Estimated Glomerular Filt Rate > 60; Glucose Random 90 mg/dL (60-115); HDL Cholesterol 74 mg/dL (>40); LDL Cholesterol Calculated 86 mg/dL (<100); Sodium 142 mmol/L (135-145); Triglycerides 152 mg/dL (<150)
== END 2025-03-02 15:50 | disposition home or self-care (01) ==
LOC: HO.WFDLDS 15:49
PROVIDERS: Visit Provider Internal Medicine
DX: Z01.810 Encounter for preprocedural cardiovascular examination (principal); E78.2 Mixed hyperlipidemia; M43.16 Spondylolisthesis, lumbar region; Z79.01 Long term (current) use of anticoagulants
CPT/HCPCS: 36415; 80053; 80061; 85025; 85610; 99212

== ENCOUNTER 2025-03-17 09:34 | Outpatient (BNV) | payer MEDICARE, OTHER, SELFPAY | END 2025-03-18 11:15 | PROVIDERS: Admitting Provider Physician Assistant; PCP Internal Medicine; Visit Provider Radiology Diagnostic Radiology | DX: M43.26 Fusion of spine, lumbar region (principal) | CPT/HCPCS: 72100 ==

== ENCOUNTER 2025-03-17 09:34 | Inpatient (IN) | payer MEDICARE, OTHER, SELFPAY ==
[2025-03-03 12:15] VITALS: BP 107/66; PULSE 80; RESP 17; O2SAT 96; BMI 29.5
--- NOTE | 2025-03-03 12:30 | HO.ANESPROP2 ---
Documented by User: Sada Pichardo NP 03/16/25 09:06 HPI - Anesthesia Eval Consult details Narrative: 69yo F for L4-5 Oblique Lumbar Interbody Fusion, 03/17/2025 Medically optimized per PCP No recent illness No CP/SOB with gym 3 x weekly PMFSH Active Problems Active Problems: All Active Problems Preoperative cardiovascular examination (Acute) Lumbar stenosis with neurogenic claudication (Acute) Spondylolisthesis, lumbar region (Acute) Cough (Acute) Left hip pain (Acute) Lumbar radiculopathy (Acute) Low back pain (Acute) Bursitis, hip (Acute) Fatigue (Acute) Physical exam (Acute) History of back surgery (Acute) DDD (degenerative disc disease), lumbosacral (Acute) Headache (Acute) Hyperlipidemia (Acute) Past Medical History Medical History Arthritis Back pain Hyperlipidemia Migraine Family History Family History Mother Lung cancer Maternal Grandmother Pancreatic cancer Family history of problems with anesthesia: No Surgical History Surgical History H/O colonoscopy History of partial hysterectomy History of appendectomy History of bunionectomy of left great toe History of carpal tunnel release of both wrists History of back surgery History of Problems with Anesthesia: No Social History Social History Housing: House Are you a primary childcare director to a significant other at home: No Do you presently have visiting nurse or other home services: No Patient Tobacco Use Status: Never used Tobacco e-Cigarette/Vaping Use: Never Used Second Hand Smoke Exposure: No Use of substances other than those prescribed or required for medical reasons: No Have you been hit, kicked, punched, or otherwise hurt by someone within the past year? If so, by whom?: No Are you DNR?: No Advance Directives: No Advance Directives Information Provided: Yes Advance Directives on File: No Patient : No : No Poor oral hygiene: No service: No Current occupational status: retired Cognitive needs: No Hearing needs: No Vision needs: Yes (glasses to read) Meds Allergies Allergy/AdvReac Type Severity Reaction Status Date / Time zolpidem (From Ambien) Allergy Confusion Verified 03/03/25 12:13 Home Medications ?Medication ?Instructions ?Recorded ?Confirmed ?Last Taken ?Type ozfqzfflzh-jycttadudqyxr-zefdbzca 1 cap PO Q4H PRN Headache 03/03/25 03/17/25 Unknown History 50 mg-300 mg-40 mg capsule Exam Height,Weight and Vital Signs: Height 5 ft 5 in Weight 80.286 kg Last Vital Signs Pulse 80 03/03/25 12:15 Resp 17 03/03/25 12:15 BP 107/66 03/03/25 12:15 Pulse Ox 96 03/03/25 12:15 O2 Del Method Room Air 03/03/25 12:15 Pertinent Lab Results Pertinent Lab Results: Laboratory Tests 03/02/25 15:52 WBC 5.1 Hgb 12.6 Hct 36.9 L Plt Count 217 Sodium 142 Potassium 4.0 Chloride 105 Carbon Dioxide 30 H BUN 16 Creatinine 0.67 Lab Results 03/03/25 Range/Units 12:55 Blood Type A Positive Antibody Screen NEGATIVE Narrative Narrative: EKG 02/2025 NSR @ 60 T wave abn Airway Mallampati Class: III TM Dist: >3cm Neck ROM: Full Loose/Missing/Broken Teeth: No (8&9 capped, stable) Heart: RRR Lungs: CTAB Assessment and Plan Assessment Anesthesia Assessment: Anesthesia Plan Discussed and PAT Visit Final Anesthetic Review Family History of Problems with Anesthesia: No History of Problems with Anesthesia: No Documented by User: Greg Jose MD 03/17/25 10:37 [facility] Past Medical History Medical History Arthritis Back pain Hyperlipidemia Migraine Family History Family History Mother Lung cancer Maternal Grandmother Pancreatic cancer Surgical History Surgical History H/O colonoscopy History of partial hysterectomy History of appendectomy History of bunionectomy of left great toe History of carpal tunnel release of both wrists History of back surgery Social History Social History Housing: House Are you a primary childcare director to a significant other at home: No Do you presently have visiting nurse or other home services: No Patient Tobacco Use Status: Never used Tobacco e-Cigarette/Vaping Use: Never Used Second Hand Smoke Exposure: No Use of substances other than those prescribed or required for medical reasons: No Have you been hit, kicked, punched, or otherwise hurt by someone within the past year? If so, by whom?: No Are you DNR?: No Advance Directives: No Advance Directives Information Provided: Yes Advance Directives on File: No Patient : No : No Poor oral hygiene: No service: No Current occupational status: retired Cognitive needs: No Hearing needs: No Vision needs: Yes (glasses to read) Meds Allergies Allergy/AdvReac Type Severity Reaction Status Date / Time zolpidem (From Ambien) Allergy Confusion Verified 03/03/25 12:13 Home Medications ?Medication ?Instructions ?Recorded ?Confirmed ?Last Taken ?Type kmizfgtrcb-iduprhkelmpsi-nynilree 1 cap PO Q4H PRN Headache 03/03/25 03/17/25 Unknown History 50 mg-300 mg-40 mg capsule Assessment and Plan Final Anesthetic Review NPO: Yes ASA Class: II Final Preanesthetic Review: No Changes in Pt Med Stat, Meds/Allgs Chart Reviewed, Consent Obtained/Reviewed and Anes Risks/Benef Reviewed Patient Risk: Low Procedure Risk: Low Anesthetic Plan Anesthetic Plan: GA Disposition: Standard PACU
[2025-03-17] VITALS (10 sets, daily range): BP systolic 106–124; BP diastolic 49–69; PULSE 56–86; RESP 14–20; TEMP 36.1–36.8; O2SAT 92–99
--- NOTE | ~2025-03-17 | XR_ITS ---
EXAMINATION: XR LUMBOSACRAL SPINE CLINICAL INFORMATION: s/p L4-5 lumbar fusion COMPARISON: 12/22/2024. TECHNIQUE: Three views of the lumbosacral spine. FINDINGS: Since the prior exam, there has been posterior fusion and discectomy of L4-5 with transpedicular screws, posterior connecting rods, and intervening disc grafts. The hardware appears intact, and well seated without periprosthetic lucency or fracture. No complication evident. There is a similar 5 mm anterolisthesis of L4 on L5. Alignment is otherwise anatomic. There is a stable very mild wedge compression of T12, involving the superior endplate. There are no fractures, acute compression deformities, or suspicious bone lesions. There are a few scattered Schmorl's nodes within the endplates. There is mild degenerative disc disease present, most notable at L5-S1. Associated degenerative facet changes L4-S1. There are mild vascular calcifications in the soft tissues. XR/XR lumbar spine 2-3V IMPRESSION: 1. Stable minimal compression deformity of T12. No acute bony abnormalities. 2. Interval posterior fusion of L4-5 without complication evident. Electronically signed by: Yonas Holland MD 03/18/2025 12:23 PM EDT
--- NOTE | ~2025-03-17 | FL_ITS ---
EXAMINATION: FL GUIDANCE ONLY HISTORY: L4-5 OLIF COMPARISON: Correlation is made with plain films of the lumbar spine dated 12/22/2024. TECHNIQUE: Fluoroscopy time: 1 minute, 5.4 seconds. Cumulative Dose: 46.052 mGy. DAP: 14.897 mGym2 Images: 6. FINDINGS: Fluoroscopic spot films of the lumbar spine demonstrate posterior fusion at L4-5 with pedicle screws, spinal stabilization rods, and an intervertebral spacer. FL/FL guidance in OR IMPRESSION: Fluoroscopy during procedure. Please see procedure report for additional information. Electronically signed by: Ron Medina MD 03/17/2025 01:31 PM EDT
[2025-03-17] MEDS: methocarbamoL 750 MG TABLET PO (09:50)
[2025-03-17] MEDS: Gabapentin 300 MG CAPSULE PO (09:50)
[2025-03-17] MEDS: Lactated Ringers 1,000 ML 100 ML IVCONT (09:58)
--- NOTE | 2025-03-17 10:01 | MHC.SHP ---
Pre-Procedural Eval Section A - 24 Hr Update-Section A only Date of Service: 03/17/25 The patient is an INPATIENT: Yes Section B - Complete if H&P > 30 days Chief Complaint: s/p L4-5 OLIF Details of Present Illness: Back pain and bilateral leg pain Allergies: Allergies Allergy/AdvReac Type Severity Reaction Status Date / Time zolpidem (From Ambien) Allergy Confusion Verified 03/03/25 12:13 Review of Systems Sugical H&P ROS: Negative: Constitution, Cardiovascular, Respiratory, Neurological, Psychiatric, Hem-Onc, Allergic/Immunologic, Gastrointestinal, Genitourinary, Musculoskeletal, Integumentary, Endocrine and Eyes/Ears/Nose/Throat Exam Surgical H&P Exam: Normal: HEENT, Normal: Heart, Normal: Lungs, Normal: Extremities, Normal: Abdomen, Normal: Skin and Normal: Neurological (Awake, alert) Plan Diagnosis/Plan: Unchanged I have reviewed the history and physical and performed a pertinent physical examination on my patient. No changes have occurred unless specified. Oblique lumbar interbody fusion L4-5 Time Spent With Patient Time: Total time managing care of this patient today __5__ minutes.
--- OUTSIDE RECORDS SUMMARY | 2025-03-17 10:18 | XMS_ITS | Clinical Summary ---
Author Organization Formerly [facility] Address [address] [place] [address] Care Team Providers Care Aluminum Welder Name Role Phone Community, Pcp Primary Care Provider Unavailabl e Allergies No known active allergies Medications Medication Sig Dispensed Refills Start Date End Date Status [id number] INE 50-325-40 MG OR TABS (FIORICET, ESGIC) [...] Family History Medical History Relation Name Comments VA Father CA Lung Mother Diabetes Mother Relation Name Status Comments Brother Alive healthy Father (Age 59) [place] Mother (Age 53) lung cance r; DM [...] How often do you attend chur or anabaptism services? Never 09/08/2021 Do you belong to any clubs o r organizations such as scientologist groups, unions, fraternal or athletic groups, or [...] 60 01/06/2022 1:04 PM EDT Temperature 36.9 C (98.4 F) 01/06/2022 1:04 PM EDT Respiratory Rate 16 01/06/2022 1:04 PM EDT [...] - 2022-2 4 season) 2024 2021, 02/16/2021 BMI CHECK/ADVISE 09/24/2024 11/21/2021, 11/2019, 03/14/2016 INFLUENZA (Season Ended) 2025 021, 06/20/2019, 06/15/2017, Additional history exists CHOLESTEROL SCREENING 11/21/2026 11/21/2021 , 03/17/2016, 05/20/2014, Additional history exists COLON CANCER SCREENING 03/25/2030 0, 03/25/2020 (Completed), 07/21/2012 (External Completion) HEPATITIS C SCREENING Completed 06/09/2013 PNEUMOCOCCAL VACCINE Completed 06/22/2020, 07/19/20 18 Care Teams Aluminum Welder Relationship Specialty Start Date End Date Community, Pcp PCP - General Internal Medicine 05/07/23
--- NOTE | 2025-03-17 12:42 | P.OP_ITS ---
Operative Note Operative Note Date of Service: 03/17/25 Narrative: Preop Diagnosis: 1.) L4-5 spondylolisthesis 2.) Back pain and neurogenic claudication Procedure: 1) L4-5 discectomy, arthrodesis and implantation cage through an anterolateral, retroperitoneal approach 2) L4-5 posterior instrumented fusion 3) allograft 4) Injection of 10 cc of Exparel at the transverse process for a muscular erector spinae block and additional Exparel in paravertebral tissue for postop management Consent Informed Consent was obtained for this operation. I have explained the nature, purpose and benefits of the operation. I have discussed the risks and benefit of the operation including possible complications or adverse events with patient/family. Alternative(s) were discussed with the patient with their relative benefits and risks as well as the consequences of not accepting the operation were included in obtaining consent. Surgeon: BRI RODRIGUEZ MD, PHD Procedure Assisted By: coreen Ventura Description of Procedure This patient underwent a lumbar laminotomy another institution without success. She presents with progressive L4-5 spondylolisthesis, back pain and neurogenic claudication. The patient was offered an oblique lumbar interbody fusion L4-5 to stabilize the segment. The procedure and complications were explained. The patient was consented. The patient was brought to the operating room and endotracheally intubated. The patient was turned in a lateral position with the left side up. Prep and drape was done followed by timeout. A small incision was made in the left lower abdominal quadrant. The muscle fascia was opened after which the 3 muscle layer was split to enter the retroperitoneal space. Dilators were docked in the anterior one third of the L4-5 disc space followed by a retractor. The retractor was opened. The L4-5 disc space was exposed. An annulotomy was done after which an elevator Melendez was used to release the disc material from its endplates and to perforate the contralateral side. A partial discectomy was done. An 8 mm, 10 mm and 12 mm height trial implant was inserted. The discectomy was completed. The endplates were prepared. An 12 x 50 mm with 6 degree lordosis 4 web cage filled with allograft was inserted into the disc space under fluoroscopic guidance. This resulted in reduction of the spondylolisthesis. The retractor was removed. Hemostasis was done. The incision was closed in 2 layers. Steri-Strips used to approximate incision. An OpSite with Tegaderm was used to cover the incision. This marked first part of the procedure. The patient was turned prone on the Olaf spine table. 2C arms were installed for fluoroscopy. Prep and drape was done followed by a second timeout. Injection of 10 cc of Exparel at the bilateral L4 transverse processi for a muscular erector spinae block. Two paramedian incisions were made lateral from the L4 and L5 pedicles. The muscle fascia was opened after which the muscle layer was split bluntly to expose the posterolateral gutter. The following steps were taken. A pediguard tap was used to create a transpedicular trajectory into the vertebral body. A K wire was placed. A specially designed instrument was advanced over the K wire to decorticate the posterolateral gutter in preparation for the posterolateral fusion. A pedicle screw was advanced over the K wire and the K wire was removed. The steps were done for the bilateral L4 and L5 pedicles. A total of 4 screws were placed with a diameter of 7.5 x 45 mm in the bilateral L4 pedicles and 7.5 x 50 mm in the bilateral L5 pedicles. Patient is suffering from osteopenia/osteoporosis and therefore poor purchase of the screws was experienced. Pedicle screws were connected with a 50 mm sathish bilaterally and locked down with locking caps. The extension towers were removed. The posterolateral gutter was filled with allograft to complete the posterolateral L4-5 fusion Hemostasis was done and the incision was closed in 2 layers. Steri- Strips were used to approximate the incision. An OpSite with tegaderm was used to cover the incision. All sponge and needle counts were correct. Patient was extubated and transferred in stable is to recovery room. Anesthesia: General Estimated Blood Loss (ml): 30 mL Duration of Surgery: 90 minutes Complications: None Postoperative Plan: Admit to inpatient for clinical observation
[2025-03-17] MEDS: 0.9 % Sodium Chloride 1,000 ML 75 ML IVCONT (15:50)
--- NOTE | 2025-03-17 15:53 | PC.NURSE ---
Addendum entered by Mya Garcia RN 03/17/25 16:02: Dr. Bhakta and PA in and assessed patient Original Note: PACU report states last void at 0900,got patient OOB with 2 assist to commode ,when standing up patient states her right leg became numb ,gave up on her ,it was not due to pain,unable to urinate ,bladder scanned for 326 ml ,will str cath now,patient unable to ambulate at this time,MALICK Paez notified
--- NOTE | 2025-03-17 16:14 | PHA.MEDREC ---
Pharmacy Consult ? Medication Reconciliation Pharmacy has reviewed the medication reconciliation done by nursing and also spoke to roel. Per patient, she does not take trazodone.
[2025-03-17] MEDS: Ketorolac Tromethamine 15 MG/ML VIAL IVPUSH (16:29)
[2025-03-17] MEDS: ceFAZolin Sodium/Dextrose,Iso 2 GM/50 ML PIGGYBACK IV (17:26)
[2025-03-17] MEDS: Acetaminophen 1,000 MG/100 ML PIGGYBACK 400 MG IV (18:46)
[2025-03-17] MEDS: Docusate Sodium 100 MG CAPSULE PO (21:01)
[2025-03-17] MEDS: oxyCODONE HCl Immed Release 5 MG TABLET 10 MG PO (23:04)
[2025-03-18] MEDS: ceFAZolin Sodium/Dextrose,Iso 2 GM/50 ML PIGGYBACK IV ×2 (00:06→05:49)
[2025-03-18 00:20] VITALS: O2SAT 95
[2025-03-18] MEDS: Ketorolac Tromethamine 15 MG/ML VIAL IVPUSH ×2 (01:25→06:51)
[2025-03-18] MEDS: Acetaminophen 1,000 MG/100 ML PIGGYBACK 400 MG IV ×2 (01:31→06:51)
--- NOTE | 2025-03-18 02:40 | PC.NURSE ---
Patient alert and oriented, patient ambulating with 2 assist to the bathroom, slow and shuffled gait. Patient reporting right leg still with numbing feeling, but improving a lot.
[2025-03-18 03:13] VITALS: BP 105/59; PULSE 60; RESP 16; TEMP 36.8; O2SAT 93
[2025-03-18] MEDS: 0.9 % Sodium Chloride 1,000 ML 75 ML IVCONT (05:15)
[2025-03-18] MEDS: Atorvastatin Calcium 20 MG TABLET PO (06:52)
[2025-03-18] MEDS: oxyCODONE HCl Immed Release 5 MG TABLET 10 MG PO ×2 (06:52→11:41)
[2025-03-18] MEDS: Docusate Sodium 100 MG CAPSULE PO (06:52)
--- NOTE | 2025-03-18 07:45 | HO.NEUROPN_ITS ---
Neurosurgery Operative Note Date of Service: 03/18/25 Narrative: POD: 1 Procedure: L4-5 OLIF Nancy is a pleasant 70-year-old female who underwent L4-[address] Bhakta yesterday. She was seen this morning sitting upright in bed on [address] [place] [address]. She reports she is up walking around is otherwise doing well. She reports that her right-sided leg numbness has much improved since yesterday. Today, she is having some weakness of her left hip flexors. We discussed how this is likely secondary to the surgical approach. She is reporting good relief with current pain regimen. She is voiding well, tolerating diet. Afebrile, vital signs stable. She has about 4/5 strength with left-sided iliopsoas testing, but 5/5 strength elsewhere. Back and lateral dressings have some staining without signs of hematoma. No active sanguineous drainage. Area is dry. Plan: Arnie 70-year-old female who underwent L4-[address] Bhakta yesterday. He is having some trouble with left-sided leg weakness and we would like to see her ambulate with physical therapy today. For the time being she will remain admitted to [address] [place] [address] for recovery, pain management, and further evaluation. We will re-evaluate her again later this afternoon. Dr. Bhakta would like her to obtain a set of standing x-rays to get a baseline for her surgical construct when the patient is standing. I will place the order. Robin Bhakta MD,PhD [facility]
[2025-03-18 08:00] VITALS: BP 119/54; PULSE 64; RESP 18; TEMP 36.4; O2SAT 98
--- NOTE | 2025-03-18 09:14 | HO.POSTANES ---
Post Anesthesia Evaluation Post Anesthesia Evaluation Date of Service: 03/18/25 Vital Signs: Vital Signs Temp Pulse Resp BP Pulse Ox O2 Del Method O2 Flow Rate 03/18/25 08:00 97.5 F 64 18 119/54 L 98 Room Air 03/18/25 03:13 98.3 F 60 16 105/59 L 93 Room Air 03/18/25 00:20 95 Room Air 03/17/25 23:30 98.3 F 63 20 110/63 98 Nasal Cannula 2 Anesthesia: General Mental Status: Awake Pain Control: Satisfactory Nausea/Vomiting: None Hydration: Adequate Anesthesia-Related Issues: No Anes. Related Issues
--- NOTE | 2025-03-18 12:07 | P.DS_ITS ---
DS: Providers Provider Date of Service: 03/18/25 Date of admission: 03/17/25 09:34 Date of discharge: 03/18/25 Primary care physician: Zonia Stokes MD DS: Summary Time Attestation Discharge Coordination Time (in mins): 12 Quality: Safe Use of Opioids Does Pt have an Active Cancer Diagnosis on the Problem List?: No Quality: Stroke Does the patient have a stroke diagnosis?: No Physical Exam Vital Signs: Vital Signs: Last Vital Signs Temp 97.5 F 03/18/25 08:00 Pulse 64 03/18/25 08:00 Resp 18 03/18/25 08:00 BP 119/54 L 03/18/25 08:00 Pulse Ox 98 03/18/25 08:00 O2 Del Method Room Air 03/18/25 08:00 O2 Flow Rate 2 03/17/25 23:30 BMI result Body Mass Index 29.5 Discharge Plan Discharge Anticipated Discharge Date/Time: 03/18/25 12:07 Patient Disposition: Home, Self-Care Discharge Diagnosis: S/P L4-5 OLIF Referrals: Zonia Stokes MD [Primary Care Provider, Endocrinology] - 1 Week Discharge Medications: New oxycodone 5 mg tablet See Rx Instructions .ROUTE .COMPLEX PRN (Reason: pain) Qty: 42 0RF Rx Instructions: Take 1-2 tablets by mouth every 4 hours; Partial Fill upon patient request. Continued atorvastatin 20 mg tablet 20 mg PO DAILY Qty: 90 3RF czvoqjkfba-sipqaejjnoabl-vspi 50-300-40 mg capsule 1 cap PO Q4H MDD 6 cap PRN (Reason: Headache) Discharge Orders: Discharge Order (Routine); Ordered 03/18/25 Ordered By: Robin Deshpande Diet: Advance to usual diet Activity on Discharge: As tolerated Stand Alone Forms: Patient Portal Discharge page Print Language: Faroese Activity Restrictions/Additional Instructions: After your spinal surgery we ask you to observe the following restrictions/guidelines: Activity: It is normal to feel some discomfort as you increase your activity, but that will improve with time. We ask you avoid heavy lifting or acitivities that cause pain. As a general rule, 8lbs is a safe limit for lifting right after surgery. Walk as much as you feel comfortable but not to exhaustion. You will feel extra tired the first few days after surgery. Stay well hydrated. It is OK to walk up and down stairs You may return to driving when you are off narcotics (such as vicodin, oxycodone, dilaudid, etc), and you are back to normal functional capacity. If you have any concerns please check with office before driving. Return to work is specific to each patient and each surgery, so please speak with your doctor/PA at first follow up. Please bring paperwork such as FMLA at that time if you need it filled out. Medications: We recommend you take 1,000mg Tylenol every 8 hours for the first few weeks after surgery, if you do not have any liver issues and can tolerate this medication. Do not exceed 4,000mg daily. We will give you a short supply of narcotics after surgery (usually one weeks worth). If you need more please call the office but do not use more than prescribed. You will need to give our office 48 hours notice if you need narcotics refilled and we do not fill narcotics on weekends or evenings. If you are on a narcotic, it is a good idea to take a stool softener such as colace or senna to avoid constipation If you take blood thinner such as aspirin, Plavix, Coumadin, Effient, Eliquis etc for conditions such as Afib, DVT, Pulmonary embolus, coronary disease, stents etc please speak with your surgeon about specific details as to when you can resume these medications. You can resume NSAIDs on post op day 1 (eg: Motrin, Naproxen, etc). Follow up: Please call the office, , after surgery to arrange a 3 week follow up for wound check. Wound Care: You may remove your dressing on the first day after surgery. ?You may ?leave open to air. Please do not remove the steri strips underneath. they will fall off on their own in one week. IT IS NORMAL FOR THE WOUND TO OOZE OR BE BLOODY FOR A FEW DAYS AFTER SURGERY. ?IF THIS HAPPENS JUST PLACE NEW DRESSING OVER IT TO AVOID STAINING CLOTHES. You may shower on post op day # 1 We ask that you do not let the water soak the wound. If it does get wet, just towel dry lightly. Please do not scrub your incision or place any type of chemical/ointment on the wound. No tub baths, pools or jacuzzis for one month. If you have any leaking or redness from your wound, or fevers, please call the office. Care Plan Goals: return to normal activity as tolerated, limit bending / lifting / twisting Health Concerns: none Plan of Treatment: F/U in clinic in 2 -3 weeks Assessment: Addenda: Upon revisiting the patient this afternoon, she reported that her pain was well controlled and she felt confident / good getting up and working with PT today. Dr. Bhakta reviewed her standing x-rays from today, which shows stable placement of her surgical instrumentation with no changes from fluoroscopy. Therefore, the patient is medically cleared to be discharged home. She is agreeable to this and reports she will be calling her for a ride. I will send a prescription of oxycodone and into [facility] pharmacy for her. POD: 1 Procedure: L4-5 OLIF Nancy is a pleasant 70-year-old female who underwent L4-[address] Bhakta yesterday. She was seen this morning sitting upright in bed on [address] [place] [address]. She reports she is up walking around is otherwise doing well. She reports that her right-sided leg numbness has much improved since yesterday. Today, she is having some weakness of her left hip flexors. We discussed how this is likely secondary to the surgical approach. She is reporting good relief with current pain regimen. She is voiding well, tolerating diet. Afebrile, vital signs stable. She has about 4/5 strength with left-sided iliopsoas testing, but 5/5 strength elsewhere. Back and lateral dressings have some staining without signs of hematoma. No active sanguineous drainage. Area is dry. Plan: Anrie 70-year-old female who underwent L4-[address] Bhakta yesterday. He is having some trouble with left-sided leg weakness and we would like to see her ambulate with physical therapy today. For the time being she will remain admitted to [address] [place] [address] for recovery, pain management, and further evaluation. We will re-evaluate her again later this afternoon. Dr. Bhakta would like her to obtain a set of standing x-rays to get a baseline for her surgical construct when the patient is standing. I will place the order. Robin Bhakta MD,PhD [facility]
--- NOTE | 2025-03-18 12:26 | MHC.CM.PN ---
PT LIVES WITH PT DCD HOME N/S
== END 2025-03-18 12:52 | disposition home or self-care (01) | DRG 451 ==
LOC: HO.SSSA 09:35 → HO.S3 13:27
PROVIDERS: Neurological Surgery; Admitting Provider Physician Assistant; PCP Internal Medicine; Visit Provider Physician Assistant
PROC: 0SG00A0 Fusion of Lumbar Vertebral Joint with Interbody Fusion Device, Anterior Approach, Anterior Column, Open Approach (ICD-10-PCS; principal; 2025-03-17 11:50)
DX: M43.16 Spondylolisthesis, lumbar region (principal); M48.062 Spinal stenosis, lumbar region with neurogenic claudication; Z79.899 Other long term (current) drug therapy
CPT/HCPCS: 72100; 86850; 86900; 86901; 97116; 97161; C1713; J0131; J0665; J0666; J0690; J1171; J1885; J2003; J2704; J3010; L8699

== ENCOUNTER → 2025-03-17 09:34 | Outpatient (BNV) | payer MEDICARE, OTHER, SELFPAY | PROVIDERS: Admitting Provider Physician Assistant; PCP Internal Medicine; Visit Provider Neurological Surgery | DX: M48.062 Spinal stenosis, lumbar region with neurogenic claudication (principal); M43.16 Spondylolisthesis, lumbar region | CPT/HCPCS: 20930; 22558; 22612; 22840; 22853 ==

== ENCOUNTER 2025-03-24 13:59 | Outpatient (REF) | payer MEDICARE, OTHER, SELFPAY | END 2025-03-24 14:00 | disposition home or self-care (01) | LOC: HO.HOSX 13:59 | PROVIDERS: Visit Provider Physician Assistant | DX: Z13.89 Encounter for screening for other disorder (principal) ==

== ENCOUNTER → 2025-03-25 09:20 | Outpatient (BNV) | payer MEDICARE, OTHER, SELFPAY | PROVIDERS: Visit Provider Radiology Diagnostic Radiology | DX: M43.16 Spondylolisthesis, lumbar region (principal) | CPT/HCPCS: 72110 ==

== ENCOUNTER 2025-03-25 13:59 | Outpatient (REF) | payer MEDICARE, OTHER, SELFPAY ==
--- NOTE | ~2025-03-25 | XR_ITS ---
EXAMINATION: XR LUMBAR SPINE 4 OR MORE VIEWS HISTORY: M54.16 - Radiculopathy, lumbar region COMPARISON: Narciso is made with the prior examination dated 03/18/2025. FINDINGS: AP, and neutral, flexion, and extension lateral views of the lumbar spine are submitted. The patient is again noted to be status post posterior fusion of L4 and L5 with pedicle screws, spinal stabilization rods, and an intervertebral spacer. The fusion hardware is intact. There is no radiographic evidence of loosening. Again seen is slight anterior wedging of T12. There is spondylolisthesis of L4 on L5 measuring approximately 5-6 mm without significant change with flexion or extension. Again seen are mild degenerative changes with disc space narrowing. There is calcification of the abdominal aorta. XR/XR lumbar spine 4V min IMPRESSION: Status post posterior fusion of L4 and L5 without change. Stable grade I spondylolisthesis of L4 on L5. There is no significant change with flexion or extension. Electronically signed by: Ron Medina MD 03/25/2025 12:56 PM EDT
== END 2025-03-25 14:00 | disposition home or self-care (01) ==
LOC: HO.HOSX 13:59
PROVIDERS: Visit Provider Physician Assistant
DX: M54.16 Radiculopathy, lumbar region (principal)
CPT/HCPCS: 72110

== ENCOUNTER 2025-04-06 09:12 | Outpatient (AMB) | payer MEDICARE, OTHER, SELFPAY ==
--- NOTE | 2025-04-06 09:17 | A.OFFPC_ITS ---
Vital Signs 04/06/25 09:19 Height 5 ft 4 in Weight 172 lb 8 oz BMI 29.6 BP 122/78 Blood Pressure Location Rt brachial Position Sitting Respiration 12 Pulse 66 Pulse Source Pulse Oximeter Temp 97.9 F Temp Source Oral Pulse Oximetry (%) 99 Oxygen Delivery Method Room Air Intake Visit Reasons: Pt. had short stay surgery they said to F/U Intake Note: Follow up after lumbar infusion Protective Service Specialist Required: No Allergies zolpidem (From Ambien) Allergy (Verified 04/06/25 09:18) Confusion Tobacco use date assessed: 04/06/25 Fall risk assessment: No Falls in past year Last assessed Fall Risk: 04/06/25 Dental Screening Dental Screen Date: 04/06/25 Did you have a dental visit in the last 12 months?: Yes Did you have a dental problem in the last 6 months where you did not have access to dental care?: No Was dental information given to patient?: Patient has dentist HPI HPI Comments History of Present Illness Details 70 year female with a past medical histo ry of hyperlipidemia, migraine, low back pain presenting for follow up She underwent oblique lumbar interbody fusion with Dr Bhakta on March 17, 2025 Had significant post operative pain, now doing much better. Still uncomfortable at night with tylenol Migraines-Takes fioricet as needed, sparingly Hyperlipidemia-On lipitor 20mg daily ROS see HPI PHYSICAL EXAM: GENERAL: Alert and oriented x 3. NAD EYES: EOMI. Anicteric. HENT: Moist mucous membranes. No scleral icterus. No cervical lymphadenopathy. LUNGS: Clear to auscultation bilaterally. CARDIOVASCULAR: Regular rate and rhythm. No murmur. No JVD. ABDOMEN: Soft, non-tender +bs EXTREMITIES: No edema. Non-tender. SKIN: No rashes or lesions. Warm. NEUROLOGIC: No interval changes PSYCHIATRIC: Cooperative. Appropriate mood and affect PFSH Medical History Arthritis Back pain Hyperlipidemia Migraine Surgical History H/O colonoscopy History of partial hysterectomy History of appendectomy History of bunionectomy of left great toe History of carpal tunnel release of both wrists History of back surgery Family History Mother Lung cancer Maternal Grandmother Pancreatic cancer Social History Household Members: Spouse Housing: House Are you a primary health care facilities inspector to a significant other at home: No Do you presently have visiting nurse or other home services: No Patient Tobacco Use Status: Never used Tobacco e-Cigarette/Vaping Use: Never Used Second Hand Smoke Exposure: No service: No Current occupational status: retired Cognitive needs: No Hearing needs: No Vision needs: Yes (glasses to read) Questionnaire Thrive Questionnaire Date Thrive assessed: 03/02/25 I am a: Patient What is your living situation today?: I have a steady place to live Within the past 12 months, did the food you bought not last and you didn't have the money to get more?: Never true Within the past 12 months, did you worry whether your food would run out before you got money to buy more?: Never true Do you have trouble paying for medicines?: No Do you have trouble getting transportation to medical appointments?: No Do you have trouble paying your heating and electricity bill?: No Do you have trouble taking care of your child, family member or friend?: No Do you have trouble with day-to-day activities such as bathing, preparing meals, shopping, managing finances, etc.?: No Are you currently unemployed and looking for a job?: No Are you interested in more education?: No Please select the resources that you would like help with: None Currently or been in a relationship where the following occur: No concerns reported THRIVE Score: 0 AUDIT C Alcohol Use Questionnaire (AUDIT-C) 1. How often do you have a drink containing alcohol?: 2-4 times a month 2. How many drinks containing alcohol do you have on a typical day when you are drinking?: 1 or 2 3. How often do you have six or more drinks on one occasion?: Never Total Score: 2 NADINE-7 AMB Questionnaire NADINE-7 Date NADINE - 7 assessed: 01/17/24 Source: Developed by Drs. Ron Mark, Sarah West, Nicholas Collier and colleagues, with an educational ghislaine from [employer]. Physical exam (Primary Care) Vital Signs: Last Vital Signs Temp 97.9 F 04/06/25 09:19 Pulse 66 04/06/25 09:19 Resp 12 04/06/25 09:19 BP 122/78 04/06/25 09:19 Pulse Ox 99 04/06/25 09:19 Oxygen Delivery Method Room Air 04/06/25 09:19 BMI result Body Mass Index 29.6 Tobacco/Smoking Status: Tobacco use Status Tobacco use date assessed 04/06/25 04/06/25 09:21 Patient Tobacco Use Status Never used Tobacco 04/06/25 09:21 e-Cigarette/Vaping Use Never Used 04/06/25 09:21 Thrive Assessment: Date of Thrive Assessment Date Thrive assessed 03/02/25 04/06/25 09:21 Currently or been in a relationship where the following occur: No concerns reported Coding Level of Care Code Est Pt Level 3 (01532) Diagnoses Degeneration of intervertebral disc of lumbosacral region, unspecified whether pain present M51.379 Disc-related pain type: unspecified whether pain present History of back surgery Z98.890 Assessment & Plan Assessment & Plan (1) DDD (degenerative disc disease), lumbosacral: Code(s): M51.37 - Other intervertebral disc degeneration, lumbosacral region Category: Medical Qualifiers: Disc-related pain type: unspecified whether pain present Qualified Code(s): M51.379 - Other intervertebral disc degeneration, lumbosacral region without mention of lumbar back pain or lower extremity pain (2) History of back surgery: Code(s): Z98.890 - Other specified postprocedural states Category: Surgical Plan s/p lumbar surgery doing well. One refill of oxycodone short term for night as needed. Continue tylenol migraines-stable on current medications Medications: Refilled oxycodone Take 1-2 tablets by mouth every 6 hours; Partial Fill upon patient request. 28 tabs 0RF pain
[2025-04-06 09:19] VITALS: BP 122/78; PULSE 66; RESP 12; TEMP 36.6; O2SAT 99; BMI 29.6
== END 2025-04-06 09:39 | disposition home or self-care (01) ==
LOC: HO.HMCFM 09:12
PROVIDERS: PCP Internal Medicine; Visit Provider Internal Medicine
DX: M51.379 Other intervertebral disc degeneration, lumbosacral region without mention of lumbar back pain or lower extremity pain (principal); Z98.890 Other specified postprocedural states

== ENCOUNTER → 2025-04-06 09:12 | Outpatient (BNVA) | payer MEDICARE, OTHER, SELFPAY | PROVIDERS: PCP Internal Medicine; Visit Provider Internal Medicine | DX: M51.379 Other intervertebral disc degeneration, lumbosacral region without mention of lumbar back pain or lower extremity pain (principal); G43.909 Migraine, unspecified, not intractable, without status migrainosus; E78.5 Hyperlipidemia, unspecified; Z79.899 Other long term (current) drug therapy; Z98.1 Arthrodesis status; Z98.890 Other specified postprocedural states | CPT/HCPCS: 99212 ==

== ENCOUNTER 2025-04-07 13:44 | Outpatient (AMB) | payer MEDICARE, OTHER, SELFPAY ==
--- NOTE | 2025-04-07 13:46 | A.SPINEOV_ITS ---
Intake Visit Reasons: 1st post op Intake Note: Ms. Jefferson is here for her 1st post op. Absence Management Consultant Required: No Allergies zolpidem (From Ambien) Allergy (Verified 04/07/25 13:48) Confusion Assessment & Plan Assessment & Plan (1) S/P lumbar fusion: Code(s): Z98.1 - Arthrodesis status Category: Medical Plan Nancy is a pleasant 70-year-old female who comes in today for her 1st postoperative visit after having a L4-5 OLIF completed on 03/17/[address] Bhakta. Unfortunately, she had quite a significant bit of low back pain after surgery. She also was reporting some right-sided leg numbness and pain. Thankfully, the bulk of her pain from surgery has resolved, and she is no longer taking oxycodone. Her right-sided lower extremity symptoms have also resolved. She does report some numbness of the left medial thigh, however this may be related to the OLIF approach, and will likely resolve in time. It is most likely that she is suffering from a course of postoperative inflammation that will self resolve in the coming weeks. We discussed the postoperative healing course and I answered any questions that she had. No new neurological deficits. The patient ambulates well and rises from a seated position without difficulty. She uses no assistive devices to ambulate. Her lateral and posterior incision sites are closed and well healing. No signs of drainage. I would like to follow up with the patient again in 6 weeks for her 2nd postoperative Visit with a set of x-rays. Robin Bhakta MD,PhD [facility] Coding Level of Care Code Global (49298) Diagnoses S/P lumbar fusion Z98.1
== END 2025-04-07 14:12 | disposition home or self-care (01) ==
LOC: HO.HNS 13:45
PROVIDERS: PCP Internal Medicine; Visit Provider Physician Assistant
DX: Z98.1 Arthrodesis status (principal)
CPT/HCPCS: 99024

== ENCOUNTER → 2025-04-07 13:44 | Outpatient (BNVA) | payer MEDICARE, OTHER, SELFPAY | PROVIDERS: PCP Internal Medicine; Visit Provider Physician Assistant | DX: Z47.89 Encounter for other orthopedic aftercare (principal); Z98.1 Arthrodesis status; Z98.890 Other specified postprocedural states | CPT/HCPCS: 99212 ==

== ENCOUNTER 2025-05-11 18:10 | Outpatient (REF) | payer MEDICARE, OTHER, SELFPAY ==
--- OUTSIDE RECORDS SUMMARY | 2025-05-11 18:12 | XMS_ITS ---
Author Name [facility] Organization Unknown Care Team Organization Name Specialty Phone Email Start Date End Da te [facility] Samy Patterson Primary Care 01/29/202305/[address] [facility] Terri Garcia Primary Care 08/01/202204/24
[2025-05-11 18:21] LABS: Appearance Urine Clear; Glucose Urine UA Negative (Negative); PH 6.0 (5.0-9.0); Specific Gravity - Urine 1.025 (1.005-1.025); UMIC TRIGGER UA YES
== END 2025-05-11 18:11 | disposition home or self-care (01) ==
LOC: HO.LNP 18:10
PROVIDERS: Visit Provider Physician Assistant Medical
DX: R39.9 Unspecified symptoms and signs involving the genitourinary system (principal)
CPT/HCPCS: 81001; 87086; 87088; 87186

== ENCOUNTER 2025-05-19 08:45 | Outpatient (REF) | payer MEDICARE, OTHER, SELFPAY ==
--- NOTE | ~2025-05-19 | XR_ITS ---
EXAMINATION: XR LUMBOSACRAL SPINE CLINICAL INFORMATION: Z98.1 - Arthrodesis status COMPARISON: March 25, 2025 TECHNIQUE: Lateral views in neutral, flexion and extension position. AP view lumbar spine. FINDINGS: There are 2 metallic transpedicular screws at L4 and L5 with questionable loosening on the left L4. Status post intervertebral disc spacer placement at L4-5. There is a grade 1 anterolisthesis at L4-5 in neutral position which maintains during flexion and extension position. There is a grade 1 retrolisthesis L2-3 in neutral position which persists in flexion and extension. Multilevel marginal osteophyte formation and endplate sclerosis. Vascular calcifications, aorta. XR/XR lumbar spine 4V min IMPRESSION: No gross instability. Questionable loosening at the left transpedicle screw of L4. Electronically signed by: August Bowens MD 05/19/2025 01:33 PM EDT
--- OUTSIDE RECORDS SUMMARY | 2025-05-21 09:29 | XMS_ITS | Encounter Summary ---
Author Organization [facility] Address [address] [place] [address] Care Team Providers Care Wood Box Maker Name Role Phone Lanette aRmirez MD Primary Care Provider Agus Faria, Pcp Primary Care Provider Travis villar Encounter Details Date Type Department Care Team Description 03/18/2020 Pt. Non Urgent Medic al Question Physiatry - [place] [address] [place] [address] Hermes Jaramillo PA-C Social History Tobacco Use [...] any clubs o r organizations such as synagogue groups, unions, fraternal or athletic groups, or [...] on filedocumented in this encounter Care Teams Wood Box Maker Relationship Specialty Start Date End Date Lanette Ramirez MD PCP - General Internal Medicine 10/04/12 [facility]06[facility]23 [facility] - [facility] 05/07/23 documented as of this encounter
--- OUTSIDE RECORDS SUMMARY | 2025-05-21 09:29 | XMS_ITS | Clinical Summary ---
Author Organization [facility] Address [address] [place] [address] Care Team Providers Care Manager Asset Name Role Phone Community, Pcp Primary Care Provider Unavailabl e Allergies No known active allergies Medications Medication Sig Dispensed Refills Start Date End Date Status [id number] INE 50-325-40 MG OR TABS (FIORICET, ESGIC) [...] Family History Medical History Relation Name Comments [place] Father CA Lung Mother Diabetes Mother Relation Name Status Comments Brother Alive healthy Father (Age 59) [place] Mother (Age 53) lung cance r; DM [...] VACCINE Completed 06/22/2020, 07/19/20 18 Care Teams Manager Asset Relationship Specialty Start Date End Date Community, Pcp PCP - General Internal Medicine 05/07/23
--- OUTSIDE RECORDS SUMMARY | 2025-05-21 09:29 | XMS_ITS | Encounter Summary ---
Author Organization [facility] Address [address] [place] [address] Care Team Providers Care All Terrain Vehicle Racer Name Role Phone Lanette Ramirez MD Primary Care Provider Agus Faria, Pcp Primary Care Provider Travis e Encounter Details Date Type Department Care Team Description 08/22/2016 Orders Only Medicine/Pediatrics - [place] [address] [place] [phone] Vikram Gracia PA-C Social History Tobacco Use [...] place to sleep or slept in a chcf (including now)? No 09/08/2021 Sex Assigned at Date Recorded Not on file Job Start Date Occupation Industry Not on file Not on file Not on file documented as of this encounter Plan of Treatment Not on file documented as of this encounter Visit Diagnoses Not on filedocumented in this encounter Care Teams All Terrain Vehicle Racer Relationship Specialty Start Date End Date Lanette Ramirez MD PCP - General Internal Medicine 10/04/12 05/06/23 Brien Faria PCP - General Internal Medicine 05/07/23 documented as of this encounter
--- OUTSIDE RECORDS SUMMARY | 2025-05-21 09:29 | XMS_ITS | Encounter Summary ---
Author Organization [facility] Address [address] [place] [address] Care Team Providers Care Lead Rider Name Role Phone Lanette Ramirez MD Primary Care Provider Agus Faria, Pcp Primary Care Provider Travis e Encounter Details Date Type Department Care Team Description 03/16/2020 Orders Only Physiatry - [place] [address] [place] [address] Hermes Jaramillo PA-C Social History Tobacco Use [...] on filedocumented in this encounter Care Teams Lead Rider Relationship Specialty Start Date End Date Lanette Ramirez MD PCP - General Internal Medicine 10/04/12 05/06/23 Brien Faria PCP - General Internal Medicine 05/07/23 documented as of this encounter
--- OUTSIDE RECORDS SUMMARY | 2025-05-21 09:29 | XMS_ITS | Encounter Summary ---
Author Organization [facility] Address [address] [place] [address] Care Team Providers Care Slip Feeder Name Role Phone Lanette Ramirez MD Primary Care Provider Agus Faria, Pcp Primary Care Provider Travis e Encounter Details Date Type Department Care Team Description 03/06/2020 Pt. Non Urgent Medic al Question Medicine/Pediatrics - [place] [address] [place] [phone] Lanette Ramirez MD Social History Tobacco Use [...] any clubs o r organizations such as christian groups, unions, fraternal or athletic groups, or [...] on filedocumented in this encounter Care Teams Slip Feeder Relationship Specialty Start Date End Date Lanette Ramirez MD PCP - General Internal Medicine 10/04/12 05/06/23 [facility], Pcp PCP - General Internal Medicine 05/07/23 documented as of this encounter
--- OUTSIDE RECORDS SUMMARY | 2025-05-21 09:29 | XMS_ITS | Encounter Summary ---
Author Organization [facility] Address [address] [place] [address] Care Team Providers Care Maintenance Machinist Name Role Phone Lanette Ramirez MD Primary Care Provider Agus Faria, Pcp Primary Care Provider Travis e Encounter Details Date Type Department Care Team Description 07/29/2013 Transfer Records Medical Records [address] [place] [address] Abstract, Provider Social History Tobacco Use Types [...] often do you attend chur ch or jewish services? Never 09/08/2021 Do you belong to any clubs o r organizations such as baptist groups, unions, fraternal or athletic groups, or [...] on filedocumented in this encounter Care Teams Maintenance Machinist Relationship Specialty Start Date End Date Lanette Ramirez MD PCP - General Internal Medicine 10/04/12 05/06/23 Brien Faria PCP - General Internal Medicine 05/07/23 documented as of this encounter
--- OUTSIDE RECORDS SUMMARY | 2025-05-21 09:29 | XMS_ITS | Encounter Summary ---
Author Organization [facility] Address [address] [place] [address] Care Team Providers Care Elementary Librarian Name Role Phone Lanette Ramirez MD Primary Care Provider Agus Faria, Pcp Primary Care Provider Unavailabl e Reason for Visit * Reason Onset Date Comments Provider Call Back 03/15/2020 Encounter Details Date Type Department Care Team Description 03/15/2020 [facility] [place] [address] [place] [address] Hermes Jaramillo PA-C Provider Call Back Social [...] week 09/08/2021 How often do you attend [facility] or worship services? Never 09/08/2021 Do you belong to any clubs o r organizations such as restoration groups, unions, fraternal or athletic groups, or [...] on filedocumented in this encounter Care Teams Elementary Librarian Relationship Specialty Start Date End Date Lanette Ramirez MD PCP - General Internal Medicine 10/04/12 [facility]06[facility]23 [facility] - [facility] 05/07/23 documented as of this encounter
--- OUTSIDE RECORDS SUMMARY | 2025-05-21 09:29 | XMS_ITS | Encounter Summary ---
Author Organization [facility] Address [address] [place] [address] Care Team Providers Care Supervisor Production Department Name Role Phone Lanette Ramirez MD Primary Care Provider Agus Faria, Pcp Primary Care Provider Travis e Encounter Details Date Type Department Care Team Description 11/21/2021 Refill Physiatry - [place] [address] [place] [address] Hermes Jaramillo PA-C Social History Tobacco Use [...] often do you attend chur ch or alevism services? Never 09/08/2021 Do you belong to any clubs o r organizations such as judaism groups, unions, fraternal or athletic groups, or [...] filedocumented in this encounter Care Teams Supervisor Production Department Relationship Specialty Start Date End Date Lanette Ramirez MD PCP - General Internal Medicine 10/04/12 05/06/23 [facility], Pcp PCP - General Internal Medicine 05/07/23 documented as of this encounter
--- OUTSIDE RECORDS SUMMARY | 2025-05-21 09:29 | XMS_ITS | Encounter Summary ---
Author Organization [facility] Address [address] [place] [address] Care Team Providers Care Movable Bulkhead Installer Name Role Phone Lanette Ramirez MD Primary Care Provider Agus Faria, Pcp Primary Care Provider Travis villar Encounter Details Date Type Department Care Team Description 03/18/2020 Pt. Non Urgent Medic al Question Physiatry - [place] [address] [place] [address] Hermes Jaramillo PA-C Social History Tobacco Use [...] any clubs o r organizations such as mandaen groups, unions, fraternal or athletic groups, or [...] on filedocumented in this encounter Care Teams Movable Bulkhead Installer Relationship Specialty Start Date End Date Lanette Ramirez MD PCP - General Internal Medicine 10/04/12 05/06/23 [facility] - [facility] 05/07/23 documented as of this encounter
--- OUTSIDE RECORDS SUMMARY | 2025-05-21 09:29 | XMS_ITS | Encounter Summary ---
Author Organization [facility] Address [address] [place] [address] Care Team Providers Care Fryline Attendant Name Role Phone Lanette Ramirez MD Primary Care Provider Agus Faria, Pcp Primary Care Provider Travis e Encounter Details Date Type Department Care Team Description 04/01/2020 Orders Only Medical Records [address] [place] [address] Kaylee Yepez MD Social History Tobacco Use [...] often do you attend chur ch or anabaptist services? Never 09/08/2021 Do you belong to [...] on filedocumented in this encounter Care Teams Fryline Attendant Relationship Specialty Start Date End Date Lanette Ramirez MD PCP - General Internal Medicine 10/04/12 05/06/23 [facility], Pcp PCP - General Internal Medicine 05/07/23 documented as of this encounter
--- OUTSIDE RECORDS SUMMARY | 2025-05-21 09:29 | XMS_ITS | Encounter Summary ---
Author Organization [facility] Address [address] [place] [address] Care Team Providers Care Assistant Store Manager Operations Name Role Phone Lanette Ramirez MD Primary Care Provider Agus Faria, Pcp Primary Care Provider Travis e Encounter Details Date Type Department Care Team Description 04/27/2020 Pt. Non Urgent Medic al Question Medicine/Pediatrics - [place] [address] [place] [phone] Lanette Ramirez MD Social History Tobacco Use [...] often do you attend chur ch or rastafarian services? Never 09/08/2021 Do you belong to [...] My Chart, evidentially Kasey Pina from the [place] office set up an ultrasound appt for [...] on filedocumented in this encounter Care Teams Assistant Store Manager Operations Relationship Specialty Start Date End Date Lanette Ramirez MD PCP - General Internal Medicine 10/04/12 05/06/23 [facility], Pcp PCP - General Internal Medicine 05/07/23 documented as of this encounter
== END 2025-05-19 08:46 | disposition home or self-care (01) ==
LOC: HO.HOSX 08:45
PROVIDERS: Visit Provider Physician Assistant
DX: Z47.89 Encounter for other orthopedic aftercare (principal); Z98.1 Arthrodesis status; R20.0 Anesthesia of skin; G47.9 Sleep disorder, unspecified; R20.8 Other disturbances of skin sensation
CPT/HCPCS: 72110; 99212

== ENCOUNTER 2025-05-19 13:17 | Outpatient (AMB) | payer MEDICARE, OTHER, SELFPAY ==
--- NOTE | 2025-05-19 13:30 | HO.SPINEOV ---
Intake Visit Reasons: 2nd post op with xrays Intake Note: Ms. Lindsay is here today for her 2nd post op with x-rays appointment. Linux Programmer Required: No Allergies zolpidem (From Ambien) Allergy (Verified 05/19/25 13:31) Confusion Assessment & Plan Assessment & Plan (1) S/P lumbar fusion: Code(s): Z98.1 - Arthrodesis status Category: Medical Plan Procedure: L4-5 OLIF Nancy is a pleasant 70-year-old female comes in today for a 2nd postoperative visit after having a L4-[address] Bhakta. Overall, she states that her pain has very much so improved since her surgery. She is satisfied with the surgical procedure that she had. She does still have a burning sensation in her low back, and also reports a similar sensation over her lateral incision site. In addition to this she still has some numbness of her left medial thigh, which we discussed may be related to nerve damage and may not completely resolve despite surgery. She understands this. She obtained x-ray imaging during this visit which we reviewed together. It shows stable placement of the surgical construct. She is only taking Motrin at home for pain. She does report that she is having some difficulty sleeping at night still. No new neurological deficits. The patient ambulates well and rises from a seated position without difficulty. Her posterior and lateral incision sites are closed and well healing. I would like to send Nancy for a course of physical therapy, and we will send in a prescription for gabapentin 300 mg at bedtime to help her sleep. I would like to see her back in the office for re-evaluation after physical therapy. Victoria's informed that she should call the office when she has completed PT and make a follow-up appointment. Robin Bhakta MD,PhD [facility] Orders: Orders XR lumbar spine 4V min Today Z98.1 - Arthrodesis status Medications: New gabapentin 300 mg PO BEDTIME PRN 30 caps 0RF nerve pain Coding Level of Care Code Global (82337) Diagnoses S/P lumbar fusion Z98.1
--- OUTSIDE RECORDS SUMMARY | 2025-05-19 14:09 | XMS_ITS | Encounter Summary ---
Author Organization [facility] Address [address] [place] [address] Care Team Providers Care Communication Center Coordinator Name Role Phone Lanette Ramirez MD Primary Care Provider Agus Faria, Pcp Primary Care Provider Unavailabl e Reason for Visit * Reason Onset Date Comments Hip Pain 03/05/2020 Back Pain 03/05/2020 Encounter Details Date Type Department Care Team Description 03/05/2020 Telephone Adult Medicine [address] [address] Lanette Ramirez MD Hip Pain; Back Pain [...] How often do you attend chur or worship services? Never 09/08/2021 Do you belong to any clubs o r organizations such as adventism groups, unions, fraternal or athletic groups, or [...] changes most advanced in the inferior facets. Grade 1 anterolisthesis of L4 on 5. Narrative SERGIO CALVO OTHER EXTERNAL - 03/08/2020 10:01 AM EDT History: Back pain. Lumbosacral spine, 4 views: There is mild diffuse disc degeneration. There is facet degeneration most advanced inferiorly. There is about 6 mm of anterolisthesis of L4 on 5 which appears to be due to facet degeneration. Alignment is normal. There is slight wedging of the T12 vertebral [...] 5. Kasey TERESA RADIOLOGY Performing Organization Address [facility] Co de Phone Number SERGIO BATISTAD OTHER EXTERNAL * RADEX HIP UNILATERAL WITH PELVIS 2-3 VIEWS (03/08/2020 9:56 AM EDT) 03/08/2020 9:59 AM EDT Impressions [facility] OTHER EXTERNAL - 03/08/2020 10:00 AM EDT IMPRESSION: Mild degenerative changes. Narrative [place] [place] OTHER EXTERNAL - 03/08/2020 10:00 AM EDT History: Right hip pain. AP pelvis and 2 additional views of the right hip: There are very mild degenerative changes in the right hip with inferomedial joint space narrowing and a miniscule spur at the inferior margin of the articular surface of the femoral head. There is some mild trochanteric spurring. There are moderate degenerative changes in [...] changes. Kasey TERESA RADIOLOGY Performing Organization Address [facility]/ZIP Co de Phone Number SERGIO CALVO OTHER EXTERNAL documented in this encounter Visit Diagnoses Diagnosis Acute right-sided low back pain without sciatica- Primary Right hip pain Pain in joint, pelvic region and thigh Acute right-sided low back pain without sciatica Right hip pain Pain in joint, pelvic region and thigh Acute right-sided low back pain without sciatica documented in this encounter Care Teams Communication Center Coordinator Relationship Specialty Start Date End Date Lanette Ramirez MD PCP - General Internal Medicine 10/04/12 05/06/23 [facility], Pcp PCP - General Internal Medicine 05/07/23 documented as of this encounter
--- OUTSIDE RECORDS SUMMARY | 2025-05-19 14:09 | XMS_ITS | Encounter Summary ---
Author Organization [facility] Address [address] [place] [address] Care Team Providers Care Senior Agricultural Assistant Name Role Phone Lanette Ramirez MD Primary Care Provider Agus Faria Pcp Primary Care Provider Travis e Encounter Details Date Type Department Care Team Description 06/16/2018 Pt. Non Urgent Medic al Question Medicine/Pediatrics - [place] [address] [place] [address] Lanette Ramirez MD Social History Tobacco Use [...] often do you attend chur ch or church services? Never 09/08/2021 Do you belong to any clubs o r organizations such as methodist groups, unions, fraternal or athletic groups, or [...] on filedocumented in this encounter Care Teams Senior Agricultural Assistant Relationship Specialty Start Date End Date Lanette Ramirez MD PCP - General Internal Medicine 10/04/12 05/06/23 [facility], Pcp PCP - General Internal Medicine 05/07/23 documented as of this encounter
--- OUTSIDE RECORDS SUMMARY | 2025-05-19 14:09 | XMS_ITS | Encounter Summary ---
Author Organization [facility] Address [address] [place] [address] Care Team Providers Care Barn Operator Name Role Phone Lanette Ramirez MD Primary Care Provider Agus Faria Pcp Primary Care Provider Travis villar Encounter Details Date Type Department Care Team Description 07/22/2015 Package Designer Report Medical Records [address] [place] [address] Paty Pelayo MD Social History Tobacco Use [...] often do you attend chur ch or jainism services? Never 09/08/2021 Do you belong to any clubs o r organizations such as denominational groups, unions, fraternal or athletic groups, or [...] on filedocumented in this encounter Care Teams Barn Operator Relationship Specialty Start Date End Date Lanette Ramirez MD PCP - General Internal Medicine 10/04/12 05/06/23 Brien Faria PCP - General Internal Medicine 05/07/23 documented as of this encounter
--- OUTSIDE RECORDS SUMMARY | 2025-05-19 14:09 | XMS_ITS | Encounter Summary ---
Author Organization [facility] Address [address] [place] [address] Care Team Providers Care Sausage Cooker Name Role Phone Lanette Ramirez MD Primary Care Provider Agus Faria Pcp Primary Care Provider Travis villar Encounter Details Date Type Department Care Team Description 04/07/2020 Hospital Medical Records [address] [place] [address] Demetrius Galindo MD Social History Tobacco Use [...] often do you attend chur ch or nondenominational services? Never 09/08/2021 Do you belong to [...] on filedocumented in this encounter Care Teams Sausage Cooker Relationship Specialty Start Date End Date Lanette Ramirez MD PCP - General Internal Medicine 10/04/12 05/06/23 Brien Faria PCP - General Internal Medicine 05/07/23 documented as of this encounter
--- OUTSIDE RECORDS SUMMARY | 2025-05-19 14:09 | XMS_ITS | Clinical Summary ---
Author Organization [facility] Address [address] [place] [address] Care Team Providers Care Director Geophysical Laboratory Name Role Phone Community, Pcp Primary Care Provider Unavailabl e Allergies No known active allergies Medications Medication Sig Dispensed Refills Start Date End Date Status [id number] INE 50-325-40 MG OR TABS (FIORICET, ESGIC) [...] Family History Medical History Relation Name Comments [place] Father CA Lung Mother Diabetes Mother Relation Name Status Comments Brother Alive healthy Father (Age 59) [place] Mother (Age 53) lung cance r; DM [...] How often do you attend chur or buddhism services? Never 09/08/2021 Do you belong to [...] place to sleep or slept in a custodial (including now)? No 09/08/2021 Sex Assigned at [...] BMI CHECK/ADVISE 09/24/2024 11/21/2021, 11/2019, 03/14/2016 INFLUENZA (#1) 2025 07/03/2021, 05/26, 06/15/2017, Additional history exists CHOLESTEROL SCREENING 11/21/2026 11/21/2021 , 03/17/2016, 05/20/2014, Additional history exists COLON CANCER SCREENING 03/25/2030 0, 03/25/2020 (Completed), 07/21/2012 (External Completion) HEPATITIS C SCREENING Completed 06/09/2013 PNEUMOCOCCAL VACCINE Completed 06/22/2020, 07/19/20 18 Care Teams Director Geophysical Laboratory Relationship Specialty Start Date End Date Community, Pcp PCP - General Internal Medicine 05/07/23
--- OUTSIDE RECORDS SUMMARY | 2025-05-19 14:09 | XMS_ITS | Encounter Summary ---
Author Organization [facility] Address [address] [place] [address] Care Team Providers Care Formal Wear Rental Clerk Name Role Phone Lanette Ramirez MD Primary Care Provider Agus Faria Pcp Primary Care Provider Travis e Encounter Details Date Type Department Care Team Description 10/06/2013 Pt. Non Urgent Medic al Question Medicine/Pediatrics - [place] [address] [place] [address] Lanette Ramirez MD Social History Tobacco Use [...] often do you attend chur ch or jehovah's witness services? Never 09/08/2021 Do you belong to any clubs o r organizations such as episcopal groups, unions, fraternal or athletic groups, or [...] place to sleep or slept in a group home (including now)? No 09/08/2021 Sex Assigned [...] on filedocumented in this encounter Care Teams Formal Wear Rental Clerk Relationship Specialty Start Date End Date Lanette Ramirez MD PCP - General Internal Medicine 10/04/12 05/06/23 [facility], Pcp PCP - General Internal Medicine 05/07/23 documented as of this encounter
--- OUTSIDE RECORDS SUMMARY | 2025-05-19 14:09 | XMS_ITS | Encounter Summary ---
Author Organization [facility] Address [address] [place] [address] Care Team Providers Care Residential Leasing Manager Name Role Phone Lanette Ramirez MD Primary Care Provider Agus Faria, Pcp Primary Care Provider Travis e Encounter Details Date Type Department Care Team Description 08/31/2015 Pt. Non Urgent Medic al Question Medicine/Pediatrics - [place] [address] [place] [address] Lanette Ramirez MD Social History Tobacco Use [...] often do you attend chur ch or holiness services? Never 09/08/2021 Do you belong to any clubs o r organizations such as restorationist groups, unions, fraternal or athletic groups, or [...] on filedocumented in this encounter Care Teams Residential Leasing Manager Relationship Specialty Start Date End Date Lanette Ramirez MD PCP - General Internal Medicine 10/04/12 05/06/23 [facility] PCP - General Internal Medicine 05/07/23 documented as of this encounter
--- OUTSIDE RECORDS SUMMARY | 2025-05-19 14:09 | XMS_ITS | Encounter Summary ---
Author Organization [facility] Address [address] [place] [address] Care Team Providers Care Aluminum Welder Name Role Phone Lanette Ramirez MD Primary Care Provider Agus Faria Pcp Primary Care Provider Travis e Encounter Details Date Type Department Care Team Description 04/01/2020 Orders Only Medical Records [address] [place] [address] Kaylee Yepez MD Social History Tobacco Use [...] often do you attend chur ch or rastafari services? Never 09/08/2021 Do you belong to any clubs o r organizations such as islam groups, unions, fraternal or athletic groups, or [...] on filedocumented in this encounter Care Teams Aluminum Welder Relationship Specialty Start Date End Date Lanette Ramirez MD PCP - General Internal Medicine 10/04/12 05/06/23 [facility], Pcp PCP - General Internal Medicine 05/07/23 documented as of this encounter
--- OUTSIDE RECORDS SUMMARY | 2025-05-19 14:09 | XMS_ITS | Encounter Summary ---
Author Organization [facility] Address [address] [place] [address] Care Team Providers Care Fur Remodeler Name Role Phone Lanette Ramirez MD Primary Care Provider Agus Faria, Pcp Primary Care Provider Travis e Encounter Details Date Type Department Care Team Description 07/29/2013 Transfer Records Medical Records [address] [place] [address] Abstract, Provider Social History Tobacco Use Types Packs/Day Years [...] often do you attend chur ch or episcopal services? Never 09/08/2021 Do you belong to any clubs o r organizations such as taoism groups, unions, fraternal or athletic groups, or [...] on filedocumented in this encounter Care Teams Fur Remodeler Relationship Specialty Start Date End Date Lanette Ramirez MD PCP - General Internal Medicine 10/04/12 05/06/23 Brien Faria PCP - General Internal Medicine 05/07/23 documented as of this encounter
--- OUTSIDE RECORDS SUMMARY | 2025-05-19 14:09 | XMS_ITS | Encounter Summary ---
Author Organization [facility] Address [address] [place] [address] Care Team Providers Care Marine Electronics Technician Name Role Phone Lanette Ramirez MD Primary Care Provider Agus Faria, Pcp Primary Care Provider Travis e Encounter Details Date Type Department Care Team Description 03/16/2020 Orders Only Physiatry - [place] [address] [place] [address] Hermes Jaramillo PA-C Social History Tobacco Use [...] often do you attend chur ch or anabaptism services? Never 09/08/2021 Do you belong to any clubs o r organizations such as mu-ism groups, unions, fraternal or athletic groups, or [...] place to sleep or slept in a halfway (including now)? No 09/08/2021 Sex Assigned at Date Recorded Not on file Job Start Date Occupation Industry Not on file Not on file Not on file documented as of this encounter Plan of Treatment Not on file documented as of this encounter Visit Diagnoses Not on filedocumented in this encounter Care Teams Marine Electronics Technician Relationship Specialty Start Date End Date Lanette Ramirez MD PCP - General Internal Medicine 10/04/12 05/06/23 Brien Faria PCP - General Internal Medicine 05/07/23 documented as of this encounter
--- OUTSIDE RECORDS SUMMARY | 2025-05-19 14:09 | XMS_ITS | Encounter Summary ---
Author Organization [facility] Address [address] [place] [address] Care Team Providers Care Tree Surgeon Helper Name Role Phone Lanette Ramirez MD Primary Care Provider Agus Faria, Pcp Primary Care Provider Travis e Encounter Details Date Type Department Care Team Description 04/27/2020 Pt. Non Urgent Medic al Question Medicine/Pediatrics - [place] [address] [place] [phone] Lanette Ramirez MD Social History Tobacco Use [...] My Chart, evidentially Kasey Pina from the [place] office set up an ultrasound appt for [...] on filedocumented in this encounter Care Teams Tree Surgeon Helper Relationship Specialty Start Date End Date Lanette Ramirez MD PCP - General Internal Medicine 10/04/12 05/06/23 [facility], Pcp PCP - General Internal Medicine 05/07/23 documented as of this encounter
--- OUTSIDE RECORDS SUMMARY | 2025-05-19 14:09 | XMS_ITS | Encounter Summary ---
Author Organization [facility] Address [address] [place] [address] Care Team Providers Care Medical Chemist Name Role Phone Lanette Ramirez MD Primary Care Provider Agus Faria, Pcp Primary Care Provider Travis e Encounter Details Date Type Department Care Team Description 08/22/2016 Orders Only Medicine/Pediatrics - [place] [address] [place] [phone] Vikram Gracia PA-C Social History Tobacco Use [...] any clubs o r organizations such as jehovah's witness groups, unions, fraternal or athletic groups, or [...] filedocumented in this encounter Care Teams Medical Chemist Relationship Specialty Start Date End Date Lanette Ramirez MD PCP - General Internal Medicine 10/04/12 05/06/23 Brien Faria PCP - General Internal Medicine 05/07/23 documented as of this encounter
== END 2025-05-19 14:18 | disposition home or self-care (01) ==
LOC: HO.HNS 13:19
PROVIDERS: PCP Internal Medicine; Visit Provider Physician Assistant
DX: Z98.1 Arthrodesis status (principal)
CPT/HCPCS: 99024

== ENCOUNTER → 2025-05-19 13:20 | Outpatient (BNV) | payer MEDICARE, OTHER, SELFPAY | PROVIDERS: Visit Provider Radiology Diagnostic Radiology | DX: Z98.1 Arthrodesis status (principal) | CPT/HCPCS: 72110 ==

== ENCOUNTER 2025-07-13 09:43 | Outpatient (AMB) | payer MEDICARE, OTHER, SELFPAY ==
--- NOTE | 2025-07-13 09:49 | MHC.PC.OV ---
Vital Signs 07/13/25 09:53 Height 5 ft 4 in Weight 169 lb 6 oz BMI 29.1 BP 104/62 Blood Pressure Location Rt brachial Position Sitting Respiration 16 Pulse 62 Pulse Source Pulse Oximeter Temp 97.7 F Temp Source Oral Pulse Oximetry (%) 97 Oxygen Delivery Method Room Air Intake Visit Reasons: ed fup Intake Note: ed fu Vice President And Portfolio Manager Required: No Allergies zolpidem (From Ambien) Allergy (Verified 07/13/25 09:51) Confusion Tobacco use date assessed: 07/13/25 Dental Screening Dental Screen Date: 04/06/25 Did you have a dental visit in the last 12 months?: Yes Did you have a dental problem in the last 6 months where you did not have access to dental care?: No Was dental information given to patient?: Patient has dentist HPI HPI Comments History of Present Illness Details 70 year female with a past medical history of hyperlipidemia, migraine, low back pain presenting for ER follow up The patient presented to [facility] ER on Jul 09. She presented with abdominal cramping, sweating. She had urgency for CM. She had episodes of incontinence of water stool and then large volume loose watery stool followed by an episode of BRBPR with clot in the tolir. She had a few smaller episodes thereafter. She had nausea and non bloody vomiting. She received IV fluids. CT abd/pelvis with segmental wall thickening of the sigmoid colon suggestive of colitis. Few colonic diverticuli possibly acutely inflamed may be secondary to colitis althrough difficult to exclude actue diverticulitis. Started on augmentin. MSK: She underwent oblique lumbar interbody fusion with Dr Bhakta on March 17, 2025. Doing well Migraines-Takes fioricet as needed, sparingly Hyperlipidemia-On lipitor 20mg daily ROS see HPI PHYSICAL EXAM: GENERAL: Alert and oriented x 3. NAD EYES: EOMI. Anicteric. HENT: Moist mucous membranes. No scleral icterus. No cervical lymphadenopathy. LUNGS: Clear to auscultation bilaterally. CARDIOVASCULAR: Regular rate and rhythm. No murmur. No JVD. ABDOMEN: Soft, non-tender +bs EXTREMITIES: No edema. Non-tender. SKIN: No rashes or lesions. Warm. NEUROLOGIC: No interval changes PSYCHIATRIC: Cooperative. Appropriate mood and affect [facility] Medical History Arthritis Back pain Hyperlipidemia Migraine Surgical History H/O colonoscopy History of partial hysterectomy History of appendectomy History of bunionectomy of left great toe History of carpal tunnel release of both wrists History of back surgery Family History Mother Lung cancer Maternal Grandmother Pancreatic cancer Social History Household Members: Spouse Housing: House Are you a primary care support representative to a significant other at home: No Do you presently have visiting nurse or other home services: No Patient Tobacco Use Status: Never used Tobacco e-Cigarette/Vaping Use: Never Used Second Hand Smoke Exposure: No Use of substances other than those prescribed or required for medical reasons: No service: No Current occupational status: retired Cognitive needs: No Hearing needs: No Vision needs: Yes (glasses to read) Questionnaire Thrive Questionnaire Date Thrive assessed: 03/02/25 I am a: Patient What is your living situation today?: I have a steady place to live Within the past 12 months, did the food you bought not last and you didn't have the money to get more?: Never true Within the past 12 months, did you worry whether your food would run out before you got money to buy more?: Never true Do you have trouble paying for medicines?: No Do you have trouble getting transportation to medical appointments?: No Do you have trouble paying your heating and electricity bill?: No Do you have trouble taking care of your child, family member or friend?: No Do you have trouble with day-to-day activities such as bathing, preparing meals, shopping, managing finances, etc.?: No Are you currently unemployed and looking for a job?: No Are you interested in more education?: No Please select the resources that you would like help with: None Currently or been in a relationship where the following occur: No concerns reported THRIVE Score: 0 NADINE-7 AMB Questionnaire NADINE-7 Date NADINE - 7 assessed: 07/13/25 Source: Developed by Drs. Ron Mark, Sarah West, Nicholas Collier and colleagues, with an educational ghislaine from [employer]. NADINE-7 Assessment Billing NADINE-7 Assessment Tool: NADINE-7 Assessment 91845 Physical exam (Primary Care) Vital Signs: Last Vital Signs Temp 97.7 F 07/13/25 09:53 Pulse 62 07/13/25 09:53 Resp 16 07/13/25 09:53 BP 104/62 07/13/25 09:53 Pulse Ox 97 07/13/25 09:53 Oxygen Delivery Method Room Air 07/13/25 09:53 BMI result Body Mass Index 29.1 Tobacco/Smoking Status: Tobacco use Status Tobacco use date assessed 07/13/25 07/13/25 09:56 Patient Tobacco Use Status Never used Tobacco 07/13/25 09:56 e-Cigarette/Vaping Use Never Used 07/13/25 09:56 Thrive Assessment: Date of Thrive Assessment Date Thrive assessed 03/02/25 07/13/25 09:56 Currently or been in a relationship where the following occur: No concerns reported Coding Level of Care Code Est Pt Level 4 (59710) Diagnoses Lumbar radiculopathy M54.16 Colitis K52.9 Additional Codes NADINE-7 Assessment Billing - NADINE-7 Assessment Tool: NADINE-7 Assessment 32241 ([id number]) Assessment & Plan Assessment & Plan (1) Lumbar radiculopathy: Code(s): M54.16 - Radiculopathy, lumbar region Category: Medical (2) Colitis: Code(s): K52.9 - Noninfective gastroenteritis and colitis, unspecified Plan ER follow up Improved symptoms. Likely viral colitis v mounjaro side effects She is going to stop the mounjaro Chronic medical conditions stable
[2025-07-13 09:53] VITALS: BP 104/62; PULSE 62; RESP 16; TEMP 36.5; O2SAT 97; BMI 29.1
== END 2025-07-13 10:25 | disposition home or self-care (01) ==
LOC: HO.HMCFM 09:43
PROVIDERS: Visit Provider Internal Medicine
DX: M54.16 Radiculopathy, lumbar region (principal); K52.9 Noninfective gastroenteritis and colitis, unspecified

== ENCOUNTER → 2025-07-13 09:43 | Outpatient (BNVA) | payer MEDICARE, OTHER, SELFPAY | PROVIDERS: Visit Provider Internal Medicine | DX: M54.16 Radiculopathy, lumbar region (principal); K52.9 Noninfective gastroenteritis and colitis, unspecified; G43.909 Migraine, unspecified, not intractable, without status migrainosus; E78.5 Hyperlipidemia, unspecified; Z79.899 Other long term (current) drug therapy | CPT/HCPCS: 96127; 99212 ==